=== PATIENT | male | born 1965 | race Caucasian/White ===

== ENCOUNTER 2017-09-14 15:46 | Inpatient (IN) | payer OTHER ==
[~2017-09-14] VITALS: Ht 175.3 cm; Wt 87.8 kg
[2017-09-14] VITALS (7 sets, daily range): BP systolic 115–144; BP diastolic 76–79; PULSE 88–109; RESP 15–20; TEMP 97.5–98.7; O2SAT 94–96
[2017-09-14] MEDS ORDERED: CHLORHEXIDINE GLUCONATE 2 % 1 PACK (2 CLOTHS) TOP PRN (16:45)
[2017-09-14] MEDS ORDERED: MAGNESIUM HYDROXIDE SUSP 30 ML CUP PO PRN (16:45)
[2017-09-14] MEDS ORDERED: LACTULOSE SYRUP 20 GM/30 ML CUP PO PRN (16:45)
[2017-09-14] MEDS: PCA - TOTAL MG DILAUDID DELIVERED PER SHIFT OTHER SCH ×2 (16:45→20:43)
[2017-09-14] MEDS ORDERED: ONDANSETRON HCL 4 MG/2 ML VIAL IV PUSH PRN (16:45)
[2017-09-14] MEDS ORDERED: MISCELLANEOUS NURSING INFORMATION XX SCH (16:45)
[2017-09-14] MEDS ORDERED: BISACODYL 10 MG SUPP RECTAL PRN (16:45)
[2017-09-14] MEDS ORDERED: SENNOSIDES 8.6 MG TAB PO PRN (16:45)
[2017-09-14] MEDS: RESP: ALBUTEROL 2.5 MG/IPRATROPIUM 0.5 MG NEB (SCH) INH ×2 (16:45→20:57)
[2017-09-14] MEDS ORDERED: diphenhydrAMINE HCL 25 MG CAP PO PRN (16:45)
[2017-09-14] MEDS ORDERED: NALOXONE HCL 0.4 MG/ML AMP IV PUSH PRN (16:45)
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
[2017-09-14] MEDS: ACETAMINOPHEN 1000 MG/100 ML 100 ML IV SCH ×2 (17:46→22:17)
[2017-09-14] MEDS: METHOCARBAMOL 500 MG TAB PO SCH ×2 (17:46→20:43)
[2017-09-14] MEDS: GABAPENTIN 100 MG CAP PO SCH (17:46)
[2017-09-14] MEDS: SODIUM CHLOR 0.9% 1000 ML INJ 1,000 ML IV SCH (17:47)
[2017-09-14] MEDS: HYDROmorphone HCL PCA 6 MG/30 ML IV SCH (18:03)
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
[2017-09-14] MEDS: DOCUSATE SODIUM 50 MG/SENNA 8.6 MG TAB PO SCH (20:43)
[2017-09-14] MEDS: CHLORHEXIDINE GLUCONATE 2 % 1 PACK (2 CLOTHS) TOP SCH (23:28)
[2017-09-15] VITALS (17 sets, daily range): BP systolic 124–163; BP diastolic 68–91; PULSE 71–115; RESP 8–25; TEMP 97.6–98.3; O2SAT 91–100
[2017-09-15] MEDS: RESP: ALBUTEROL 2.5 MG/IPRATROPIUM 0.5 MG NEB (SCH) INH ×5 (04:05→20:48)
[2017-09-15] MEDS: ACETAMINOPHEN 1000 MG/100 ML 100 ML IV SCH ×2 (04:16→12:09)
[2017-09-15] MEDS: METHOCARBAMOL 500 MG TAB PO SCH ×3 (04:16→22:00)
[2017-09-15] MEDS: SODIUM CHLOR 0.9% 1000 ML INJ 1,000 ML IV SCH (04:17)
[2017-09-15] MEDS: HYDROmorphone HCL PCA 6 MG/30 ML IV SCH (04:25)
[2017-09-15 05:12] LABS: AUTOMATED NEUTROPHIL # 13.8 TH/MM3 (1.8-7.7); BASOPHIL % 0.1 % (0.0-2.0); HEMATOCRIT 34.5 % (39.0-51.0); HEMOGLOBIN 11.6 GM/DL (13.0-17.0); LYMPHOCYTE # 0.8 TH/MM3 (1.0-4.8); MEAN CELL VOLUME 95.3 FL (80.0-100.0); MEAN CORPUSCULAR HEMOGLOBIN 32.1 PG (27.0-34.0); MEAN CORPUSCULAR HGB CONC 33.7 % (32.0-36.0); MEAN PLATELET VOLUME 6.9 FL (7.0-11.0); MONO % 9.6 % (0.0-8.0); MONOCYTE # 1.5 TH/MM3 (0-0.9); NEUT % 85.3 % (16.0-70.0); PLATELET COUNT 270 TH/MM3 (150-450); RED BLOOD COUNT 3.62 MIL/MM3 (4.50-5.90); RED CELL DISTRIBUTION WIDTH 14.1 % (11.6-17.2); WHITE BLOOD COUNT 16.2 TH/MM3 (4.0-11.0)
[2017-09-15 05:26] LABS: BICARBONATE 23.7 MEQ/L (21.0-32.0); CALCIUM 7.8 MG/DL (8.5-10.1); CREATININE 1.11 MG/DL (0.60-1.30)
[2017-09-15] MEDS: PCA - TOTAL MG DILAUDID DELIVERED PER SHIFT OTHER SCH ×3 (05:45→22:00)
--- NOTE | 2017-09-15 06:13 | RADRPT ---
EXAM DATE/TIME: 09/15/2017 04:44 [facility] COMPARISON: CHEST SINGLE AP, September 14, 2017, 16:23. INDICATIONS : Short of breath. MEDICAL HISTORY : None. SURGICAL HISTORY : None. ENCOUNTER: Subsequent ACUITY: 2 days PAIN SCORE: Non-responsive. LOCATION: Bilateral chest FINDINGS: A single AP portable semierect view of the chest was obtained and again demonstrates the right-sided chest tube in place with no pneumothorax. Subcutaneous emphysema remains over the right lateral chest wall. There are multiple right rib fractures. Mild hazy opacities now noted in the right lung with i nterval improvement. There is patchy opacity remaining at the left medial lung base. The heart size i s within normal limits. CONCLUSION: 1. Right-sided chest tube in place with no visualized pneumothorax. 2. Interval improvement in bilateral pulmonary opacities. Rex Fuentes MD on September 15, 2017 at 6:10 Board Certified Radiologist. This report was verified electronically.
[2017-09-15] MEDS: GABAPENTIN 100 MG CAP PO SCH ×3 (07:42→18:00)
[2017-09-15] MEDS: DOCUSATE SODIUM 50 MG/SENNA 8.6 MG TAB PO SCH ×2 (07:43→21:00)
[2017-09-15] MEDS: FAMOTIDINE 20 MG TAB PO SCH ×2 (08:58→21:00)
[2017-09-15] MEDS: LIDOCAINE HCL 5% PATCH T-DERMAL SCH (08:58)
[2017-09-15] MEDS ORDERED: PROPOFOL 200 MG/20 ML AMP IV ONE (12:00)
[2017-09-15] MEDS ORDERED: NORMOSOL R INJ 2,000 ML IV ONE (12:00)
[2017-09-15] MEDS ORDERED: ROCURONIUM INJ 50 MG/5 ML SYRINGE IV PUSH ONE (12:00)
[2017-09-15] MEDS ORDERED: ceFAZolin INJ 1,000 MG VIAL IV ONE ×2 (12:00→16:14)
[2017-09-15] MEDS ORDERED: SODIUM CHLORID 0.9% 500 ML INJ 500 ML IV ONE (12:00)
[2017-09-15] MEDS ORDERED: LACTATED RINGER'S 1000 ML INJ 2,000 ML IV ONE (12:00)
[2017-09-15] MEDS ORDERED: SODIUM CHLORIDE 0.9% 20 ML VIAL IV ONE (12:00)
[2017-09-15] MEDS ORDERED: VECURONIUM BROMIDE 20 MG VIAL IV ONE (12:00)
[2017-09-15] MEDS ORDERED: NOREPINEPHRINE-DEXTROSE DRIP 250 ML IV ONE (12:14)
[2017-09-15] MEDS ORDERED: MIDAZOLAM HCL 5 MG/ML VIAL (1 ML) ONE (12:25)
[2017-09-15] MEDS ORDERED: ROCURONIUM INJ 50 MG/5 ML VIAL ONE (12:25)
--- NOTE | 2017-09-15 12:38 | RADRPT ---
EXAM DATE/TIME: 09/15/2017 11:54 [facility] COMPARISON: No previous studies available for comparison. INDICATIONS : Right shoulder pain. MEDICAL HISTORY : None. SURGICAL HISTORY : None. ENCOUNTER: Subsequent ACUITY: 2 days PAIN SCORE: 10/10 LOCATION: Right shoulder FINDINGS: They are numerous segmental rib fractures on the right characteristic of the radiographic flail chest . Extensive subcutaneous air in the soft tissues with likely right lung contusion and consolidation. Right chest tube present. No definite fracture of the right shoulder. CONCLUSION: 1. No definite shoulder fracture. Numerous segmental right rib fractures. Right chest tube present wi th underlying lung contusion and consolidation. Jermain Howell MD on September 15, 2017 at 12:33 Board Certified Radiologist. This report was verified electronically.
[2017-09-15] MEDS ORDERED: EPINEPHrine HCL (1:10,000) 1 MG/10 ML SYRINGE ONE (12:41)
[2017-09-15] MEDS ORDERED: SODIUM BICARBONATE 8.4% INJ 50 MEQ/50 ML SYR ONE (13:02)
[2017-09-15] MEDS ORDERED: CALCIUM CHLORIDE 10% SOLN 1 GRAM/10 ML SYR ONE (13:02)
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
--- NOTE | 2017-09-15 13:37 | PD.PROCEDR ---
Procedure Note Procedure DX: Hypovolemic Shock, Hypoxemic Respiratory Failure (J96.01) OP: 1. Orotracheal intubation (65436) 2. Insertion right subclavian central venous line (35543) Procedure: Bag mask ventilation. Levophed gtt to maintain blood pressure > 80. Versed 2.5 mg and rocuronium 100 mg iv. Intubated orally with 8.0 tube. Position confirmed with CO2 detection, breath sounds, improved sats to > 90%. Right chest prepped and draped. Right subclavian vein cannulated with thin walled needle and wire advanced. Catheter passed over wire to 17 cm. Lumens aspirated and flushed. Dressing applied. Patient rushed to OR in shock. Patient diaphoretic and contact dressing will not adhere, therefore line was sutured in. Karsten Cifuentes MD Sep 15, 2017 13:37
[2017-09-15 13:39] LABS: INTERNATIONAL NORMALIZED RATIO 1.5 RATIO; PROTHROMBIN TIME - PATIENT 15.4 SEC (9.8-11.6)
[2017-09-15 13:40] LABS: HEMOGLOBIN 6.7 GM/DL (13.0-17.0)
[2017-09-15 13:41] LABS: HEMATOCRIT 20.4 % (39.0-51.0)
[2017-09-15 13:55] LABS: BICARBONATE 17.6 MEQ/L (21.0-32.0); CALCIUM 7.2 MG/DL (8.5-10.1); CREATININE 1.21 MG/DL (0.60-1.30)
[2017-09-15 14:07] LABS: CALCIUM-PROTEIN CORRECTED 10.2 MG/DL (8.5-10.1); TOTAL PROTEIN 2.5 GM/DL (6.4-8.2)
[2017-09-15] MEDS ORDERED: SODIUM CHLORIDE 0.9% IV ONE (14:15)
[2017-09-15] MEDS ORDERED: TRANEXAMIC ACID IV ONE (14:15)
[2017-09-15] MEDS ORDERED: PROPOFOL 500 MG/50 ML INJ 50 ML ONE (15:52)
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
[2017-09-15] MEDS ORDERED: MIDAZOLAM HCL 2 MG/2 ML VIAL ONE (16:16)
--- NOTE | 2017-09-15 16:42 | RADRPT ---
EXAM DATE/TIME: 09/15/2017 15:01 [facility] COMPARISON: No previous studies available for comparison. INDICATIONS : Instrument count during right thoracotomy for removal of hematoma from right lower lobe. OR. MEDICAL HISTORY : None. SURGICAL HISTORY : None. ENCOUNTER: Initial ACUITY: 1 day PAIN SCORE: Non-responsive. LOCATION: Right lower chest FINDINGS: A left lateral view of the abdomen and lower chest is performed intraoperative post thoracotomy for i nstrument count. Multiple metallic hemoclips at the transverse incision and multiple tubes are in pl aaron. No other metallic foreign body seen. CONCLUSION: No metallic densities other than skin clips seen. Sami Barrera MD on September 15, 2017 at 16:39 Board Certified Radiologist. This report was verified electronically.
[2017-09-15] MEDS: fentaNYL DRIP 250 ML IV PRN (17:21)
[2017-09-15 17:24] LABS: AUTOMATED NEUTROPHIL # 5.6 TH/MM3 (1.8-7.7); BASOPHIL % 0.1 % (0.0-2.0); EOSINOPHIL % 0.1 % (0.0-4.0); HEMATOCRIT 25.7 % (39.0-51.0); HEMOGLOBIN 9.2 GM/DL (13.0-17.0); LYMPH % 7.4 % (9.0-44.0); LYMPHOCYTE # 0.5 TH/MM3 (1.0-4.8); MEAN CELL VOLUME 85.1 FL (80.0-100.0); MEAN CORPUSCULAR HEMOGLOBIN 30.5 PG (27.0-34.0); MEAN CORPUSCULAR HGB CONC 35.8 % (32.0-36.0); MEAN PLATELET VOLUME 6.6 FL (7.0-11.0); MONO % 6.2 % (0.0-8.0); MONOCYTE # 0.4 TH/MM3 (0-0.9); NEUT % 86.2 % (16.0-70.0); PLATELET COUNT 86 TH/MM3 (150-450); RED BLOOD COUNT 3.02 MIL/MM3 (4.50-5.90); RED CELL DISTRIBUTION WIDTH 15.1 % (11.6-17.2); WHITE BLOOD COUNT 6.5 TH/MM3 (4.0-11.0)
[2017-09-15 17:29] LABS: INTERNATIONAL NORMALIZED RATIO 1.1 RATIO; PROTHROMBIN TIME - PATIENT 10.7 SEC (9.8-11.6)
[2017-09-15] MEDS: INSULIN ASPART SUPPLEMENTAL SCALE SQ SCH ×2 (17:45→23:45)
[2017-09-15] MEDS ORDERED: GLUCAGON 1 MG/ML VIAL OTHER PRN (17:45)
[2017-09-15] MEDS ORDERED: DEXTROSE 50% IN WATER 50 ML VIAL(D50) IV PUSH PRN (17:45)
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
[2017-09-15 18:00] LABS: BICARBONATE 30.1 MEQ/L (21.0-32.0); CALCIUM 7.9 MG/DL (8.5-10.1); CREATININE 1.06 MG/DL (0.60-1.30)
[2017-09-15 18:28] LABS: BANDS 23 % (0-6); LYMPHOCYTES 6 % (9-44); MONOCYTES 1 % (0-8); POLYS (SEG NEUTROPHILS) 70 % (16-70)
[2017-09-15] MEDS: PROPOFOL 1000 MG/100 ML INJ 100 ML IV PRN ×2 (18:37→22:11)
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
[2017-09-15] MEDS ORDERED: ENOXAPARIN SODIUM 30 MG/0.3 ML SYRINGE SQ SCH (21:00)
[2017-09-16] VITALS (20 sets, daily range): BP systolic 100–126; BP diastolic 52–61; PULSE 66–94; RESP 12–20; TEMP 98–99.1; O2SAT 93–100
[2017-09-16] MEDS: CHLORHEXIDINE GLUCONATE 2 % 1 PACK (2 CLOTHS) TOP SCH (04:00)
[2017-09-16] MEDS: PROPOFOL 1000 MG/100 ML INJ 100 ML IV PRN ×4 (04:17→21:26)
[2017-09-16] MEDS: fentaNYL DRIP 250 ML IV PRN ×2 (04:17→16:19)
[2017-09-16] MEDS: RESP: ALBUTEROL 2.5 MG/IPRATROPIUM 0.5 MG NEB (SCH) INH ×4 (04:30→19:59)
[2017-09-16] MEDS: INSULIN ASPART SUPPLEMENTAL SCALE SQ SCH ×4 (05:45→23:45)
[2017-09-16 05:57] LABS: AUTOMATED NEUTROPHIL # 4.5 TH/MM3 (1.8-7.7); BASOPHIL % 0.3 % (0.0-2.0); EOSINOPHIL % 0.6 % (0.0-4.0); HEMATOCRIT 24.4 % (39.0-51.0); HEMOGLOBIN 8.8 GM/DL (13.0-17.0); LYMPH % 15.2 % (9.0-44.0); LYMPHOCYTE # 0.9 TH/MM3 (1.0-4.8); MEAN CELL VOLUME 82.5 FL (80.0-100.0); MEAN CORPUSCULAR HEMOGLOBIN 29.6 PG (27.0-34.0); MEAN CORPUSCULAR HGB CONC 35.9 % (32.0-36.0); MEAN PLATELET VOLUME 7.4 FL (7.0-11.0); MONO % 7.4 % (0.0-8.0); MONOCYTE # 0.4 TH/MM3 (0-0.9); NEUT % 76.5 % (16.0-70.0); PLATELET COUNT 78 TH/MM3 (150-450); RED BLOOD COUNT 2.96 MIL/MM3 (4.50-5.90); RED CELL DISTRIBUTION WIDTH 15.9 % (11.6-17.2); WHITE BLOOD COUNT 5.9 TH/MM3 (4.0-11.0)
[2017-09-16] MEDS: METHOCARBAMOL 500 MG TAB PO SCH ×3 (06:00→21:26)
[2017-09-16] MEDS: PCA - TOTAL MG DILAUDID DELIVERED PER SHIFT OTHER SCH ×3 (06:00→21:26)
[2017-09-16 06:19] LABS: ALBUMIN 2.4 GM/DL (3.4-5.0); AST (GOT) 45 U/L (15-37); BLOOD UREA NITROGEN 9 MG/DL (7-18); CALCIUM 7.5 MG/DL (8.5-10.1); CHLORIDE 108 MEQ/L (98-107); CREATININE 0.77 MG/DL (0.60-1.30); GLOMERULAR FILTRATION RATE 106 ML/MIN (>89); GLUCOSE,RANDOM 96 MG/DL (74-106); SODIUM (NA) 145 MEQ/L (136-145)
[2017-09-16 06:29] LABS: ALKALINE PHOSPHATASE 47 U/L (45-117); ALT (GPT) 23 U/L (12-78); TOTAL BILIRUBIN ADULT 1.1 MG/DL (0.2-1.0); TOTAL PROTEIN 5.1 GM/DL (6.4-8.2)
--- NOTE | 2017-09-16 07:09 | RADRPT ---
EXAM DATE/TIME: 09/16/2017 05:19 [facility] COMPARISON: CHEST SINGLE AP, September 15, 2017, 16:50. INDICATIONS : Shortness of breath. MEDICAL HISTORY : None. SURGICAL HISTORY : None. ENCOUNTER: Subsequent ACUITY: 4 - 6 days PAIN SCORE: Non-responsive. LOCATION: Bilateral chest FINDINGS: A single AP semierect view of the chest was obtained and again demonstrates the 2 right sided chest t ubes in place with small linear lucency at the right medial lung base. Multiple right-sided rib fract ures again noted with subcutaneous emphysema over the right lateral chest wall. Endotracheal tube rem ains in place with the tip approximately 2 cm above the becca. There are multiple overlying electroc ardiogram leads. There is patchy opacity now noted at the left lung base with obscuration of left hem idiaphragm and blunting of the costophrenic angle. The heart size remains within normal limits. CONCLUSION: 1. Small apparent medial right basilar pneumothorax. 2. Opacity at the left lung base with blunting of the costophrenic angle consistent with infiltrate a nd/or effusion. Rex Fuentes MD on September 16, 2017 at 7:06 Board Certified Radiologist. This report was verified electronically.
[2017-09-16 08:04] LABS: BANDS 21 % (0-6); CORRECTED NUCLEATED RBC 1 /100 WBC (0-0); LYMPHOCYTES 9 % (9-44); MONOCYTES 3 % (0-8); NEUTROPHIL # MANUAL DIFF 5.1 TH/MM3 (1.8-7.7); NUCLEATED RED BLOOD CELL 1 (0-0); POLYS (SEG NEUTROPHILS) 66 % (16-70)
[2017-09-16 08:06] LABS: OVALOCYTES 1+ (NORMAL)
[2017-09-16 08:07] LABS: DOHLE BODIES PRESENT (NONE SEEN)
[2017-09-16] MEDS ORDERED: NOREPINEPHRINE 4 MG/D5W 250 ML IV PRN (08:30)
[2017-09-16] MEDS: SODIUM CHLOR 0.9% 1000 ML INJ 1,000 ML IV SCH ×3 (08:52→16:20)
[2017-09-16] MEDS: FAMOTIDINE 20 MG TAB PO SCH ×2 (08:52→21:26)
[2017-09-16] MEDS: DOCUSATE SODIUM 50 MG/SENNA 8.6 MG TAB PO SCH ×2 (08:52→21:26)
[2017-09-16] MEDS: LIDOCAINE HCL 5% PATCH T-DERMAL SCH (08:52)
[2017-09-16] MEDS: REMOVE OLD LIDOCAINE PATCH T-DERMAL SCH ×2 (08:52→08:53)
[2017-09-16] MEDS: GABAPENTIN 100 MG CAP PO SCH ×3 (08:52→17:47)
[2017-09-16] MEDS ORDERED: ROCURONIUM INJ 50 MG/5 ML VIAL IV ONE (12:15)
[2017-09-16] MEDS: ENOXAPARIN SODIUM 40 MG/0.4 ML SYRINGE SQ SCH (12:54)
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
--- NOTE | 2017-09-16 13:33 | PD.PROCEDR ---
Procedure Note Procedure Endotracheal Intubation Diagnosis: acute hypoxic respiratory failure Indications: cuff leak of the old double lumen endotracheal tube Consent: not obtained Anesthesia: on propofol and fentanyl infusion, rocuronium 100 mg Description of the Procedure: The patient was positioned in the sniffing position. Pre-oxygenation was performed using the old double lumen endotracheal tube. Anesthesia was induced via rapid sequence. A Colvin 2 blade was used for laryngoscopy and a Grade 1 view was obtained. A n 8.5mm cuffed endotracheal tube was inserted atraumatically through the vocal cords. Confirmation of correct endotracheal tube placement was made by equal and bilateral breath sounds and colorimetric CO2 detection. The endotracheal tube was secured at 24 cm at the teeth. There were no immediate complications noted. The patient remained hemodynamically stable throughout the procedure. A chest x-ray has been ordered. I personally performed the procedure. Jef Massey MD Sep 16, 2017 13:33
--- NOTE | 2017-09-16 13:59 | RADRPT ---
EXAM DATE/TIME: 09/16/2017 13:10 [facility] COMPARISON: CHEST SINGLE AP, September 16, 2017, 5:19. INDICATIONS : Post re-intubation. MEDICAL HISTORY : None. SURGICAL HISTORY : None. ENCOUNTER: Subsequent ACUITY: 1 day PAIN SCORE: Non-responsive. LOCATION: Bilateral chest FINDINGS: Endotracheal tube tip is within the right main bronchus, approximately 1.2 cm below the becca. Ther e is increase airspace opacity in the right upper lung. 3 right chest drainage tubes are unchanged i n position. Persistent consolidation left lower lung. CONCLUSION: Intubation of the right main bronchus. ET tube needs to be withdrawn at least 3-1/2 cm. Sami Barrera MD on September 16, 2017 at 13:56 Board Certified Radiologist. This report was verified electronically.
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
[2017-09-16] MEDS ORDERED: POTASSIUM PHOSPHATE INJ 30 MMOL in SODIUM CHLOR 0.9% 250 ML INJ 250 ML IV PRN (18:00)
[2017-09-16] MEDS ORDERED: MAGNESIUM OXIDE 400 MG TAB PO PRN (18:00)
[2017-09-16] MEDS ORDERED: POTASSIUM PHOSPHATE MONOBASIC 500 MG TAB PO PRN (18:00)
[2017-09-16] MEDS ORDERED: POTASSIUM CHLOR 20 MEQ PREMIX 100 ML IV PRN ×2 (18:00)
[2017-09-16] MEDS ORDERED: MAGNESIUM SULFATE INJ 4 GM in SODIUM CHLORIDE 0.9% INJ 92 ML IV PRN (18:00)
[2017-09-16] MEDS ORDERED: MAGNESIUM SULFATE INJ 2 GM in SODIUM CHLORIDE 0.9% INJ 96 ML IV PRN (18:00)
[2017-09-16] MEDS ORDERED: SODIUM PHOSPHATE INJ 30 MMOL in SODIUM CHLOR 0.9% 250 ML INJ 240 ML IV PRN (18:00)
[2017-09-16] MEDS ORDERED: POTASSIUM PHOSPHATE MONOBASIC 500 MG TAB PO/TUBE PRN (18:00)
[2017-09-17] VITALS (15 sets, daily range): BP systolic 114–154; BP diastolic 61–83; PULSE 72–136; RESP 11–12; TEMP 98–98.6; O2SAT 87–99
[2017-09-17] MEDS: PROPOFOL 1000 MG/100 ML INJ 100 ML IV PRN ×5 (01:50→22:28)
[2017-09-17] MEDS: CHLORHEXIDINE GLUCONATE 2 % 1 PACK (2 CLOTHS) TOP SCH (04:00)
[2017-09-17] MEDS: RESP: ALBUTEROL 2.5 MG/IPRATROPIUM 0.5 MG NEB (SCH) INH ×4 (04:08→19:53)
[2017-09-17] MEDS: METHOCARBAMOL 500 MG TAB PO SCH ×3 (04:24→21:10)
[2017-09-17] MEDS: PCA - TOTAL MG DILAUDID DELIVERED PER SHIFT OTHER SCH ×3 (04:25→21:10)
[2017-09-17] MEDS: SODIUM CHLOR 0.9% 1000 ML INJ 1,000 ML IV SCH ×2 (04:25→09:07)
[2017-09-17 04:56] LABS: AUTOMATED NEUTROPHIL # 5.6 TH/MM3 (1.8-7.7); BASOPHIL % 0.6 % (0.0-2.0); EOSINOPHIL # 0.2 TH/MM3 (0-0.4); EOSINOPHIL % 2.8 % (0.0-4.0); HEMOGLOBIN 8.7 GM/DL (13.0-17.0); LYMPH % 15.3 % (9.0-44.0); LYMPHOCYTE # 1.2 TH/MM3 (1.0-4.8); MEAN CORPUSCULAR HEMOGLOBIN 29.4 PG (27.0-34.0); MEAN CORPUSCULAR HGB CONC 34.6 % (32.0-36.0); MEAN PLATELET VOLUME 7.5 FL (7.0-11.0); MONO % 7.6 % (0.0-8.0); MONOCYTE # 0.6 TH/MM3 (0-0.9); NEUT % 73.7 % (16.0-70.0); PLATELET COUNT 98 TH/MM3 (150-450); RED BLOOD COUNT 2.95 MIL/MM3 (4.50-5.90); RED CELL DISTRIBUTION WIDTH 15.9 % (11.6-17.2); WHITE BLOOD COUNT 7.5 TH/MM3 (4.0-11.0)
[2017-09-17 05:21] LABS: BICARBONATE 25.8 MEQ/L (21.0-32.0); CALCIUM 7.1 MG/DL (8.5-10.1); CALCIUM-PROTEIN CORRECTED 8.2 MG/DL (8.5-10.1); CREATININE 0.71 MG/DL (0.60-1.30); TOTAL BILIRUBIN ADULT 1.8 MG/DL (0.2-1.0); TOTAL PROTEIN 5.1 GM/DL (6.4-8.2)
[2017-09-17] MEDS: INSULIN ASPART SUPPLEMENTAL SCALE SQ SCH ×4 (05:45→23:45)
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
--- NOTE | 2017-09-17 06:43 | RADRPT ---
EXAM DATE/TIME: 09/17/2017 05:48 [facility] COMPARISON: CHEST SINGLE AP, September 16, 2017, 13:10. INDICATIONS : Shortness of breath. MEDICAL HISTORY : Rib fractures. SURGICAL HISTORY : None. ENCOUNTER: Subsequent ACUITY: 3 days PAIN SCORE: Non-responsive. LOCATION: Bilateral chest FINDINGS: A single AP semierect portable view of the chest was obtained and again demonstrates 3 right-sided ch est tubes in place with no visualized pneumothorax. There is decreased opacity in the right lung. Mul tiple right-sided rib fractures are again noted. There is only a small amount of subcutaneous emphyse ma now noted over the right lateral chest wall. There is patchy opacity remaining at the left lung ba se. The heart size remains within normal limits. Endotracheal tube tip remains in place with the tip now located approximately 3 cm above the becca. CONCLUSION: 1. The endotracheal tube tip now lies approximately 3 cm above the becca. 2. The right-sided chest tubes remain in place with no visualized pneumothorax. 3. Decreased hazy opacity in the right lung compared to the prior study. Rex Fuentes MD on September 17, 2017 at 6:40 Board Certified Radiologist. This report was verified electronically.
[2017-09-17] MEDS: FAMOTIDINE 20 MG TAB PO SCH ×2 (08:51→21:10)
[2017-09-17] MEDS: LIDOCAINE HCL 5% PATCH T-DERMAL SCH (08:51)
[2017-09-17] MEDS: GABAPENTIN 100 MG CAP PO SCH ×3 (08:51→17:24)
[2017-09-17] MEDS: DOCUSATE SODIUM 50 MG/SENNA 8.6 MG TAB PO SCH ×2 (08:51→21:10)
[2017-09-17] MEDS: REMOVE OLD LIDOCAINE PATCH T-DERMAL SCH (08:52)
[2017-09-17] MEDS: ENOXAPARIN SODIUM 40 MG/0.4 ML SYRINGE SQ SCH (12:00)
[2017-09-17] MEDS: fentaNYL DRIP 250 ML IV PRN (17:04)
[2017-09-18] VITALS (18 sets, daily range): BP systolic 112–137; BP diastolic 61–80; PULSE 92–128; RESP 11–13; TEMP 99.2–100.3; O2SAT 90–97
[2017-09-18] MEDS: RESP: ALBUTEROL 2.5 MG/IPRATROPIUM 0.5 MG NEB (SCH) INH ×2 (02:32→08:29)
[2017-09-18] MEDS: PROPOFOL 1000 MG/100 ML INJ 100 ML IV PRN ×6 (03:16→21:28)
[2017-09-18] MEDS: CHLORHEXIDINE GLUCONATE 2 % 1 PACK (2 CLOTHS) TOP SCH (04:00)
[2017-09-18 04:01] LABS: AUTOMATED NEUTROPHIL # 8.2 TH/MM3 (1.8-7.7); BASOPHIL % 0.4 % (0.0-2.0); EOSINOPHIL # 0.4 TH/MM3 (0-0.4); EOSINOPHIL % 4.3 % (0.0-4.0); HEMATOCRIT 27.7 % (39.0-51.0); HEMOGLOBIN 9.5 GM/DL (13.0-17.0); LYMPH % 6.5 % (9.0-44.0); LYMPHOCYTE # 0.7 TH/MM3 (1.0-4.8); MEAN CORPUSCULAR HEMOGLOBIN 29.5 PG (27.0-34.0); MEAN CORPUSCULAR HGB CONC 34.3 % (32.0-36.0); MEAN PLATELET VOLUME 7.1 FL (7.0-11.0); MONO % 7.9 % (0.0-8.0); MONOCYTE # 0.8 TH/MM3 (0-0.9); NEUT % 80.9 % (16.0-70.0); PLATELET COUNT 140 TH/MM3 (150-450); RED BLOOD COUNT 3.22 MIL/MM3 (4.50-5.90); RED CELL DISTRIBUTION WIDTH 16.2 % (11.6-17.2); WHITE BLOOD COUNT 10.2 TH/MM3 (4.0-11.0)
[2017-09-18] MEDS: SODIUM CHLOR 0.9% 1000 ML INJ 1,000 ML IV SCH (04:25)
[2017-09-18 04:44] LABS: ALBUMIN 1.9 GM/DL (3.4-5.0); BICARBONATE 26.1 MEQ/L (21.0-32.0); CALCIUM 7.2 MG/DL (8.5-10.1); CREATININE 0.75 MG/DL (0.60-1.30); TOTAL PROTEIN 5.6 GM/DL (6.4-8.2)
[2017-09-18] MEDS: INSULIN ASPART SUPPLEMENTAL SCALE SQ SCH ×4 (05:37→23:45)
[2017-09-18] MEDS: fentaNYL DRIP 250 ML IV PRN ×3 (05:37→17:37)
[2017-09-18] MEDS: METHOCARBAMOL 500 MG TAB PO SCH ×3 (05:37→21:28)
[2017-09-18] MEDS: PCA - TOTAL MG DILAUDID DELIVERED PER SHIFT OTHER SCH ×3 (05:37→21:28)
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
[2017-09-18] MEDS ORDERED: FUROSEMIDE 40 MG/4 ML VIAL IV PUSH ONE (06:45)
[2017-09-18] MEDS: FAMOTIDINE 20 MG TAB PO SCH ×2 (08:41→21:28)
[2017-09-18] MEDS: LIDOCAINE HCL 5% PATCH T-DERMAL SCH (08:41)
[2017-09-18] MEDS: DOCUSATE SODIUM 50 MG/SENNA 8.6 MG TAB PO SCH ×2 (08:41→21:00)
[2017-09-18] MEDS: REMOVE OLD LIDOCAINE PATCH T-DERMAL SCH (08:41)
[2017-09-18] MEDS: GABAPENTIN 100 MG CAP PO SCH ×3 (08:41→18:00)
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
[2017-09-18] MEDS: POTASSIUM CHLOR 40 MEQ PREMIX 100 ML IV PRN ×2 (09:39→11:56)
[2017-09-18] MEDS: ENOXAPARIN SODIUM 40 MG/0.4 ML SYRINGE SQ SCH (12:09)
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
[2017-09-19] VITALS (18 sets, daily range): BP systolic 119–126; BP diastolic 60–71; PULSE 86–128; RESP 13; TEMP 98.9–99.9; O2SAT 92–98
[2017-09-19] MEDS: fentaNYL DRIP 250 ML IV PRN ×3 (02:09→19:30)
[2017-09-19] MEDS: PROPOFOL 1000 MG/100 ML INJ 100 ML IV PRN ×4 (02:09→20:37)
[2017-09-19] MEDS: CHLORHEXIDINE GLUCONATE 2 % 1 PACK (2 CLOTHS) TOP SCH (04:00)
[2017-09-19] MEDS: INSULIN ASPART SUPPLEMENTAL SCALE SQ SCH ×4 (05:45→23:45)
[2017-09-19] MEDS: PCA - TOTAL MG DILAUDID DELIVERED PER SHIFT OTHER SCH ×3 (06:00→22:00)
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
[2017-09-19 07:49] LABS: AUTOMATED NEUTROPHIL # 5.3 TH/MM3 (1.8-7.7); BASOPHIL % 0.2 % (0.0-2.0); EOSINOPHIL # 0.5 TH/MM3 (0-0.4); EOSINOPHIL % 6.7 % (0.0-4.0); HEMATOCRIT 26.1 % (39.0-51.0); HEMOGLOBIN 8.9 GM/DL (13.0-17.0); LYMPH % 9.1 % (9.0-44.0); LYMPHOCYTE # 0.7 TH/MM3 (1.0-4.8); MEAN CELL VOLUME 87.7 FL (80.0-100.0); MEAN CORPUSCULAR HEMOGLOBIN 29.8 PG (27.0-34.0); MONO % 16.9 % (0.0-8.0); MONOCYTE # 1.3 TH/MM3 (0-0.9); NEUT % 67.1 % (16.0-70.0); PLATELET COUNT 159 TH/MM3 (150-450); RED BLOOD COUNT 2.98 MIL/MM3 (4.50-5.90); RED CELL DISTRIBUTION WIDTH 15.8 % (11.6-17.2); WHITE BLOOD COUNT 7.9 TH/MM3 (4.0-11.0)
[2017-09-19 08:11] LABS: BICARBONATE 29.4 MEQ/L (21.0-32.0); CREATININE 0.83 MG/DL (0.60-1.30)
[2017-09-19] MEDS: DOCUSATE SODIUM 50 MG/SENNA 8.6 MG TAB PO SCH ×2 (08:13→20:36)
[2017-09-19] MEDS: LIDOCAINE HCL 5% PATCH T-DERMAL SCH (08:14)
[2017-09-19] MEDS: METHOCARBAMOL 500 MG TAB PO SCH ×3 (08:14→21:51)
[2017-09-19] MEDS: GABAPENTIN 100 MG CAP PO SCH ×3 (08:14→17:03)
[2017-09-19] MEDS: REMOVE OLD LIDOCAINE PATCH T-DERMAL SCH (08:14)
[2017-09-19] MEDS: FAMOTIDINE 20 MG TAB PO SCH ×2 (08:14→20:36)
[2017-09-19 09:34] LABS: BANDS 22 % (0-6); LYMPHOCYTES 11 % (9-44); MONOCYTES 13 % (0-8); MYELOCYTES 1 % (0-0); POLYS (SEG NEUTROPHILS) 53 % (16-70)
[2017-09-19] MEDS ORDERED: FUROSEMIDE 40 MG/4 ML VIAL IV PUSH ONE (10:15)
[2017-09-19] MEDS: ENOXAPARIN SODIUM 40 MG/0.4 ML SYRINGE SQ SCH (11:05)
[2017-09-19] MEDS ORDERED: POTASSIUM BICARBONATE 25 MEQ EFFERVESCENT TAB PO ONE (12:00)
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
[2017-09-19 23:43] LABS: ALBUMIN 1.7 GM/DL (3.4-5.0); AST (GOT) 37 U/L (15-37); BICARBONATE 30.6 MEQ/L (21.0-32.0); BLOOD UREA NITROGEN 12 MG/DL (7-18); CALCIUM 7.9 MG/DL (8.5-10.1); CHLORIDE 106 MEQ/L (98-107); CREATININE 0.91 MG/DL (0.60-1.30); GLOMERULAR FILTRATION RATE 87 ML/MIN (>89); GLUCOSE,RANDOM 143 MG/DL (74-106); MAGNESIUM 1.8 MG/DL (1.5-2.5); SODIUM (NA) 142 MEQ/L (136-145)
[2017-09-19 23:44] LABS: ALT (GPT) 24 U/L (12-78); PHOSPHORUS 1.6 MG/DL (2.5-4.9)
[2017-09-19 23:48] LABS: ALKALINE PHOSPHATASE 159 U/L (45-117); TOTAL BILIRUBIN ADULT 1.8 MG/DL (0.2-1.0); TOTAL PROTEIN 5.8 GM/DL (6.4-8.2); TROPONIN I LESS THAN 0.02 NG/ML (0.02-0.05)
[2017-09-20] VITALS (21 sets, daily range): BP systolic 123–166; BP diastolic 58–79; PULSE 62–111; RESP 13–21; TEMP 98.4–99.9; O2SAT 91–97
[2017-09-20] MEDS: CHLORHEXIDINE GLUCONATE 2 % 1 PACK (2 CLOTHS) TOP SCH (00:13)
[2017-09-20] MEDS: PROPOFOL 1000 MG/100 ML INJ 100 ML IV PRN ×2 (00:36→04:00)
[2017-09-20] MEDS: fentaNYL DRIP 250 ML IV PRN (04:56)
[2017-09-20] MEDS: PCA - TOTAL MG DILAUDID DELIVERED PER SHIFT OTHER SCH (04:58)
[2017-09-20] MEDS: METHOCARBAMOL 500 MG TAB PO SCH ×3 (05:03→19:36)
[2017-09-20 05:08] LABS: AUTOMATED NEUTROPHIL # 6.8 TH/MM3 (1.8-7.7); BASOPHIL % 0.2 % (0.0-2.0); EOSINOPHIL # 0.4 TH/MM3 (0-0.4); EOSINOPHIL % 4.2 % (0.0-4.0); HEMOGLOBIN 8.6 GM/DL (13.0-17.0); LYMPH % 8.2 % (9.0-44.0); LYMPHOCYTE # 0.8 TH/MM3 (1.0-4.8); MEAN CELL VOLUME 86.8 FL (80.0-100.0); MEAN CORPUSCULAR HEMOGLOBIN 29.8 PG (27.0-34.0); MEAN CORPUSCULAR HGB CONC 34.3 % (32.0-36.0); MONO % 13.5 % (0.0-8.0); MONOCYTE # 1.2 TH/MM3 (0-0.9); NEUT % 73.9 % (16.0-70.0); PLATELET COUNT 209 TH/MM3 (150-450); RED BLOOD COUNT 2.88 MIL/MM3 (4.50-5.90); RED CELL DISTRIBUTION WIDTH 15.6 % (11.6-17.2); WHITE BLOOD COUNT 9.3 TH/MM3 (4.0-11.0)
[2017-09-20] MEDS: INSULIN ASPART SUPPLEMENTAL SCALE SQ SCH ×4 (05:20→23:16)
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
[2017-09-20 07:55] LABS: BANDS 21 % (0-6); LYMPHOCYTES 9 % (9-44); METAMYELOCYTES 1 % (0-1); MONOCYTES 7 % (0-8); MYELOCYTES 7 % (0-0); NEUTROPHIL # MANUAL DIFF 7.7 TH/MM3 (1.8-7.7); POLYS (SEG NEUTROPHILS) 54 % (16-70)
[2017-09-20] MEDS ORDERED: LABETALOL HCL 100 MG/20 ML VIAL IV PUSH PRN (08:15)
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
[2017-09-20] MEDS ORDERED: FUROSEMIDE 40 MG/4 ML VIAL IV PUSH ONE (09:00)
[2017-09-20] MEDS: FAMOTIDINE 20 MG TAB PO SCH ×2 (09:00→19:35)
[2017-09-20] MEDS: DOCUSATE SODIUM 50 MG/SENNA 8.6 MG TAB PO SCH ×2 (09:00→19:35)
[2017-09-20] MEDS: REMOVE OLD LIDOCAINE PATCH T-DERMAL SCH (09:00)
[2017-09-20 09:14] LABS: BICARBONATE 31.4 MEQ/L (21.0-32.0); CALCIUM 8.2 MG/DL (8.5-10.1); CREATININE 0.85 MG/DL (0.60-1.30)
[2017-09-20] MEDS: LIDOCAINE HCL 5% PATCH T-DERMAL SCH (09:15)
[2017-09-20] MEDS: GABAPENTIN 100 MG CAP PO SCH ×3 (09:15→18:00)
[2017-09-20] MEDS: LISINOPRIL 5 MG TAB PO SCH (09:15)
[2017-09-20] MEDS: METOPROLOL TARTRATE 50 MG TAB PO SCH ×2 (09:15→19:35)
--- NOTE | 2017-09-20 09:19 | EKG ---
Date Performed: 09/19/2017 Time Performed: 21:00:06 PTAGE: 52 years EKG: Sinus rhythm . Extensive ST-T changes are nonspecific Borderline ECG NO PREVIOUS TRACING DOCTOR: Martínez Najera Interpretating Date/Time 09/20/2017 09:18:54
[2017-09-20] MEDS: POTASSIUM CHLOR 40 MEQ PREMIX 100 ML IV PRN (10:26)
[2017-09-20] MEDS ORDERED: Vancomycin Consult Pharmacy 1 EA OTHER SCH (10:30)
[2017-09-20] MEDS: PIPERACIL-TAZO 4.5 GM PREMIX 100 ML IV SCH ×2 (11:23→19:45)
[2017-09-20] MEDS: MORPHINE SULFATE 4 MG/ML INJ IV PUSH PRN ×2 (11:23→21:07)
[2017-09-20] MEDS: ENOXAPARIN SODIUM 40 MG/0.4 ML SYRINGE SQ SCH (11:23)
[2017-09-20] MEDS: DEXMEDETOMIDINE INJ 1,000 MCG in SODIUM CHLOR 0.9% 250 ML INJ 250 ML IV PRN ×2 (11:43→17:28)
[2017-09-20] MEDS ORDERED: VANCOMYCIN 1,500 MG/NS 500 ML IV ONE ×2 (12:00)
[2017-09-20] MEDS: VANCOMYCIN INJ 1,750 MG in SODIUM CHLORID 0.9% 500 ML INJ 500 ML IV SCH (12:01)
[2017-09-20] MEDS ORDERED: LORazepam 2 MG/ML VIAL ONE (12:09)
[2017-09-20] MEDS: LORazepam 2 MG/ML VIAL IV PUSH PRN ×2 (12:10→17:28)
[2017-09-20] MEDS ORDERED: FLUMAZENIL 0.5 MG/5 ML VIAL IV PUSH PRN (12:15)
[2017-09-20] MEDS ORDERED: LORazepam 2 MG/ML VIAL IV PUSH PRN ×2 (12:15)
[2017-09-20] MEDS ORDERED: LORazepam 1 MG TAB PO PRN (12:15)
[2017-09-20] MEDS ORDERED: LORazepam 2 MG TAB PO PRN (12:15)
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
[2017-09-21] VITALS (19 sets, daily range): BP systolic 118–165; BP diastolic 63–92; PULSE 64–123; RESP 24–33; TEMP 98.1–99.6; O2SAT 92–97
[2017-09-21] MEDS: MORPHINE SULFATE 4 MG/ML INJ IV PUSH PRN ×4 (00:16→13:41)
[2017-09-21] MEDS: DEXMEDETOMIDINE INJ 1,000 MCG in SODIUM CHLOR 0.9% 250 ML INJ 240 ML IV PRN ×2 (00:50→09:12)
[2017-09-21] MEDS: VANCOMYCIN INJ 1,750 MG in SODIUM CHLORID 0.9% 500 ML INJ 500 ML IV SCH ×3 (00:56→23:51)
[2017-09-21] MEDS: PIPERACIL-TAZO 4.5 GM PREMIX 100 ML IV SCH ×3 (03:40→21:57)
[2017-09-21] MEDS: CHLORHEXIDINE GLUCONATE 2 % 1 PACK (2 CLOTHS) TOP SCH (04:00)
[2017-09-21] MEDS: METHOCARBAMOL 500 MG TAB PO SCH ×3 (04:05→22:00)
[2017-09-21] MEDS: LORazepam 2 MG/ML VIAL IV PUSH PRN ×6 (04:19→23:27)
[2017-09-21 04:22] LABS: AUTOMATED NEUTROPHIL # 8.2 TH/MM3 (1.8-7.7); BASOPHIL % 0.4 % (0.0-2.0); EOSINOPHIL # 0.3 TH/MM3 (0-0.4); EOSINOPHIL % 3.2 % (0.0-4.0); HEMATOCRIT 25.8 % (39.0-51.0); HEMOGLOBIN 8.7 GM/DL (13.0-17.0); LYMPH % 9.6 % (9.0-44.0); MEAN CELL VOLUME 87.1 FL (80.0-100.0); MEAN CORPUSCULAR HEMOGLOBIN 29.3 PG (27.0-34.0); MEAN CORPUSCULAR HGB CONC 33.6 % (32.0-36.0); MEAN PLATELET VOLUME 6.7 FL (7.0-11.0); MONO % 11.9 % (0.0-8.0); MONOCYTE # 1.3 TH/MM3 (0-0.9); NEUT % 74.9 % (16.0-70.0); PLATELET COUNT 249 TH/MM3 (150-450); RED BLOOD COUNT 2.96 MIL/MM3 (4.50-5.90); RED CELL DISTRIBUTION WIDTH 15.7 % (11.6-17.2); WHITE BLOOD COUNT 10.9 TH/MM3 (4.0-11.0)
[2017-09-21 04:42] LABS: BICARBONATE 26.7 MEQ/L (21.0-32.0); CREATININE 0.73 MG/DL (0.60-1.30)
[2017-09-21] MEDS: INSULIN ASPART SUPPLEMENTAL SCALE SQ SCH ×4 (05:14→23:45)
[2017-09-21] MEDS: POTASSIUM CHLOR 40 MEQ PREMIX 100 ML IV PRN ×2 (05:21→15:28)
[2017-09-21 06:50] LABS: BANDS 23 % (0-6); LYMPHOCYTES 13 % (9-44); METAMYELOCYTES 3 % (0-1); MONOCYTES 6 % (0-8); MYELOCYTES 3 % (0-0); NEUTROPHIL # MANUAL DIFF 8.7 TH/MM3 (1.8-7.7); POLYS (SEG NEUTROPHILS) 51 % (16-70)
[2017-09-21] MEDS: FAMOTIDINE 20 MG TAB PO SCH ×2 (07:59→21:00)
[2017-09-21] MEDS: METOPROLOL TARTRATE 50 MG TAB PO SCH ×2 (07:59→21:00)
[2017-09-21] MEDS: GABAPENTIN 100 MG CAP PO SCH ×3 (07:59→17:38)
[2017-09-21] MEDS: DOCUSATE SODIUM 50 MG/SENNA 8.6 MG TAB PO SCH ×2 (07:59→21:00)
[2017-09-21] MEDS: REMOVE OLD LIDOCAINE PATCH T-DERMAL SCH (08:00)
[2017-09-21] MEDS: LISINOPRIL 5 MG TAB PO SCH (08:00)
[2017-09-21] MEDS: LIDOCAINE HCL 5% PATCH T-DERMAL SCH (08:17)
[2017-09-21] MEDS ORDERED: FUROSEMIDE 40 MG/4 ML VIAL IV PUSH ONE (10:00)
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
[2017-09-21] MEDS: ENOXAPARIN SODIUM 40 MG/0.4 ML SYRINGE SQ SCH (12:00)
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
[2017-09-21] MEDS ORDERED: fentaNYL 2MCG-BUPIV 0.125% INJ 100 ML ONE (14:07)
[2017-09-21] MEDS: HEPARIN SODIUM - SQ 10,000 UNITS/ML VIAL SQ SCH (21:00)
[2017-09-21] MEDS: hydrALAZINE HCL 20 MG/ML VIAL IV PUSH PRN (21:56)
[2017-09-21] MEDS: LABETALOL HCL 100 MG/20 ML VIAL IV PUSH PRN (21:57)
[2017-09-21] MEDS: fentaNYL 2MCG-BUPIV 0.125% INJ 100 ML EPIDURAL SCH (22:57)
[2017-09-21] MEDS ORDERED: PHARMACY ORDERED LAB ONE (23:45)
[2017-09-22] VITALS (15 sets, daily range): BP systolic 112–151; BP diastolic 66–87; PULSE 75–96; RESP 35–39; TEMP 99–99.3; O2SAT 92–98
[2017-09-22] MEDS: CHLORHEXIDINE GLUCONATE 2 % 1 PACK (2 CLOTHS) TOP SCH (04:00)
[2017-09-22] MEDS: PIPERACIL-TAZO 4.5 GM PREMIX 100 ML IV SCH ×3 (04:53→20:15)
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
[2017-09-22 05:43] LABS: AUTOMATED NEUTROPHIL # 10.3 TH/MM3 (1.8-7.7); BASOPHIL % 0.3 % (0.0-2.0); EOSINOPHIL # 0.3 TH/MM3 (0-0.4); EOSINOPHIL % 2.2 % (0.0-4.0); HEMATOCRIT 24.9 % (39.0-51.0); HEMOGLOBIN 8.3 GM/DL (13.0-17.0); LYMPH % 9.6 % (9.0-44.0); LYMPHOCYTE # 1.3 TH/MM3 (1.0-4.8); MEAN CELL VOLUME 86.7 FL (80.0-100.0); MEAN CORPUSCULAR HEMOGLOBIN 28.9 PG (27.0-34.0); MEAN CORPUSCULAR HGB CONC 33.3 % (32.0-36.0); MEAN PLATELET VOLUME 6.4 FL (7.0-11.0); MONO % 11.1 % (0.0-8.0); MONOCYTE # 1.5 TH/MM3 (0-0.9); NEUT % 76.8 % (16.0-70.0); PLATELET COUNT 335 TH/MM3 (150-450); RED BLOOD COUNT 2.87 MIL/MM3 (4.50-5.90); RED CELL DISTRIBUTION WIDTH 15.5 % (11.6-17.2); WHITE BLOOD COUNT 13.4 TH/MM3 (4.0-11.0)
[2017-09-22] MEDS: METHOCARBAMOL 500 MG TAB PO SCH ×4 (05:43→22:00)
[2017-09-22] MEDS: INSULIN ASPART SUPPLEMENTAL SCALE SQ SCH ×4 (05:45→23:45)
[2017-09-22 06:04] LABS: BICARBONATE 21.9 MEQ/L (21.0-32.0); CREATININE 0.8 MG/DL (0.60-1.30)
[2017-09-22] MEDS: DEXMEDETOMIDINE INJ 1,000 MCG in SODIUM CHLOR 0.9% 250 ML INJ 240 ML IV PRN ×2 (06:17→18:37)
[2017-09-22] MEDS: fentaNYL 2MCG-BUPIV 0.125% INJ 100 ML EPIDURAL SCH ×2 (06:39→16:23)
[2017-09-22 08:07] LABS: BANDS 15 % (0-6); CORRECTED NUCLEATED RBC 1 /100 WBC (0-0); LYMPHOCYTES 4 % (9-44); METAMYELOCYTES 7 % (0-1); MONOCYTES 6 % (0-8); MYELOCYTES 3 % (0-0); NEUTROPHIL # MANUAL DIFF 12.1 TH/MM3 (1.8-7.7); NUCLEATED RED BLOOD CELL 1 (0-0); POLYS (SEG NEUTROPHILS) 65 % (16-70)
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
[2017-09-22] MEDS: METOPROLOL TARTRATE 50 MG TAB PO SCH ×3 (09:00→21:00)
[2017-09-22] MEDS: GABAPENTIN 100 MG CAP PO SCH ×3 (09:00→18:00)
[2017-09-22] MEDS: LISINOPRIL 5 MG TAB PO SCH (09:00)
[2017-09-22] MEDS: REMOVE OLD LIDOCAINE PATCH T-DERMAL SCH (09:00)
[2017-09-22] MEDS: DOCUSATE SODIUM 50 MG/SENNA 8.6 MG TAB PO SCH ×2 (09:00→20:14)
[2017-09-22] MEDS: FAMOTIDINE 20 MG TAB PO SCH ×3 (09:00→21:00)
[2017-09-22] MEDS: HEPARIN SODIUM - SQ 10,000 UNITS/ML VIAL SQ SCH ×2 (09:00→20:14)
[2017-09-22] MEDS: LABETALOL HCL 100 MG/20 ML VIAL IV PUSH PRN ×4 (12:04→20:15)
[2017-09-22] MEDS: POTASSIUM CHLOR 40 MEQ PREMIX 100 ML IV PRN (12:16)
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
--- NOTE | 2017-09-22 16:31 | HHI.PR ---
Subjective Remarks Epidural Management Note Epidural Day: 2 Epidural Level: T10/11 Epidural Current settings: 0.125% bupivicaine with 2 mcg/mL fentanyl, 10mL/hr continuous, 5mL q15min demand. Pain level: 0 / 10 Subjective: Patient needs to be sedated with Precedex for agitated delirium and withdrawal symptoms. When patient is arousable, patient denies pain. Patient able to take 600-700 cc tidal volumes on noninvasive positive pressure ventilation. FiO2 45%. SPO2 96%. Adjuvant Pain medications: As needed Tylenol Changes made to current regimen: None. Pain regimen appears to be working for patient as he has remained extubated with flail chest. The patient has not had any IV narcotic pain medicine since the epidural went in, and denies pain when aroused from sedation. Patient still required sedation for agitated delirium and withdrawal symptoms. Medical Necessity: This patient has ongoing and active pain needs that are being met by neuraxial analgesia. Specifically, pain associated with multiple right-sided rib fractures and postthoracotomy pain. The neuraxial analgesia continues to be required today on my assessment. Norman catheter: A norman catheter IS NOT required for the epidural in this patient. This patient may ambulate with assistance. Objective Vital Signs Date Time Temp Pulse Resp B/P (MAP) Pulse Ox O2 Delivery O2 Flow Rate FiO2 09/22/17 16:23 36 09/22/17 16:14 94 40 09/22/17 16:00 82 09/22/17 12:00 99.0 95 36 151/87 (108) 95 09/22/17 12:00 95 09/22/17 11:20 96 45 09/22/17 08:36 93 45 09/22/17 08:00 99.0 75 35 116/67 (83) 93 09/22/17 08:00 93 Bi-Pap 45 09/22/17 08:00 75 09/22/17 06:39 31 09/22/17 06:00 96 09/22/17 04:25 94 45 09/22/17 04:00 96 09/22/17 04:00 99.3 96 37 112/72 (85) 93 09/22/17 02:00 93 09/22/17 00:00 99.0 91 39 134/66 (88) 92 09/22/17 00:00 91 09/21/17 23:08 92 45 09/21/17 22:57 35 09/21/17 22:00 117 09/21/17 20:00 106 09/21/17 20:00 99.0 106 33 125/68 (87) 92 09/21/17 19:34 92 45 09/21/17 19:00 93 Bi-Pap 45 09/21/17 18:00 123 I/O 09/21/17 09/21/17 09/21/17 09/22/17 09/22/17 09/22/17 07:00 15:00 23:00 07:00 15:00 23:00 Intake Total 250 ml 100 ml 591 ml 600 ml 200 ml Output Total 825 ml 1800 ml 1600 ml 1400 ml Balance -575 ml -1700 ml -1009 ml -800 ml 200 ml IV Total 250 ml 100 ml 591 ml 600 ml 200 ml Output Urine Total 825 ml 1800 ml 1600 ml 1200 ml Stool Total 0 ml 0 ml 50 ml Chest Tube Drainage Total 150 ml Result Diagram: 09/22/17 0520 09/22/17 0520 Ryan Mendoza MD Sep 22, 2017 16:31
[2017-09-22] MEDS: VANCOMYCIN 1,500 MG/NS 500 ML IV SCH ×2 (16:53)
[2017-09-23] VITALS (12 sets, daily range): BP systolic 134–175; BP diastolic 78–88; PULSE 82–95; RESP 39–49; TEMP 98.9–99.7; O2SAT 91–95
[2017-09-23] MEDS: LABETALOL HCL 100 MG/20 ML VIAL IV PUSH PRN ×5 (02:10→23:00)
[2017-09-23] MEDS: fentaNYL 2MCG-BUPIV 0.125% INJ 100 ML EPIDURAL SCH ×3 (02:36→23:03)
[2017-09-23] MEDS: hydrALAZINE HCL 20 MG/ML VIAL IV PUSH PRN ×2 (03:59→14:08)
[2017-09-23] MEDS: LORazepam 2 MG/ML VIAL IV PUSH PRN (03:59)
[2017-09-23] MEDS: PIPERACIL-TAZO 4.5 GM PREMIX 100 ML IV SCH ×3 (03:59→20:59)
[2017-09-23] MEDS: CHLORHEXIDINE GLUCONATE 2 % 1 PACK (2 CLOTHS) TOP SCH (04:00)
[2017-09-23 05:14] LABS: AUTOMATED NEUTROPHIL # 12.6 TH/MM3 (1.8-7.7); BASOPHIL # 0.1 TH/MM3 (0-0.2); BASOPHIL % 0.4 % (0.0-2.0); EOSINOPHIL # 0.3 TH/MM3 (0-0.4); EOSINOPHIL % 1.7 % (0.0-4.0); HEMATOCRIT 25.5 % (39.0-51.0); HEMOGLOBIN 8.5 GM/DL (13.0-17.0); LYMPH % 7.7 % (9.0-44.0); LYMPHOCYTE # 1.2 TH/MM3 (1.0-4.8); MEAN CELL VOLUME 85.5 FL (80.0-100.0); MEAN CORPUSCULAR HEMOGLOBIN 28.4 PG (27.0-34.0); MEAN CORPUSCULAR HGB CONC 33.2 % (32.0-36.0); MEAN PLATELET VOLUME 6.8 FL (7.0-11.0); MONO % 9.9 % (0.0-8.0); MONOCYTE # 1.6 TH/MM3 (0-0.9); NEUT % 80.3 % (16.0-70.0); PLATELET COUNT 389 TH/MM3 (150-450); RED BLOOD COUNT 2.99 MIL/MM3 (4.50-5.90); RED CELL DISTRIBUTION WIDTH 15.3 % (11.6-17.2); WHITE BLOOD COUNT 15.7 TH/MM3 (4.0-11.0)
[2017-09-23 05:23] LABS: ALBUMIN 1.9 GM/DL (3.4-5.0); AST (GOT) 37 U/L (15-37); BICARBONATE 20.5 MEQ/L (21.0-32.0); BLOOD UREA NITROGEN 18 MG/DL (7-18); CALCIUM 8.3 MG/DL (8.5-10.1); CHLORIDE 115 MEQ/L (98-107); CREATININE 0.83 MG/DL (0.60-1.30); GLOMERULAR FILTRATION RATE 97 ML/MIN (>89); GLUCOSE,RANDOM 104 MG/DL (74-106); SODIUM (NA) 147 MEQ/L (136-145)
[2017-09-23 05:24] LABS: ALT (GPT) 23 U/L (12-78)
[2017-09-23 05:26] LABS: ALKALINE PHOSPHATASE 132 U/L (45-117); TOTAL BILIRUBIN ADULT 1.4 MG/DL (0.2-1.0); TOTAL PROTEIN 6.2 GM/DL (6.4-8.2)
[2017-09-23] MEDS: METHOCARBAMOL 500 MG TAB PO SCH ×3 (06:00→22:00)
[2017-09-23 07:11] LABS: BANDS 12 % (0-6); CORRECTED NUCLEATED RBC 1 /100 WBC (0-0); LYMPHOCYTES 12 % (9-44); MONOCYTES 8 % (0-8); MYELOCYTES 5 % (0-0); NEUTROPHIL # MANUAL DIFF 12.4 TH/MM3 (1.8-7.7); NUCLEATED RED BLOOD CELL 1 (0-0); POLYS (SEG NEUTROPHILS) 62 % (16-70)
[2017-09-23 07:12] LABS: POLYCHROMASIA 3.1 % (0.0-1.9)
[2017-09-23 07:13] LABS: OVALOCYTES 1+ (NORMAL)
[2017-09-23] MEDS: VANCOMYCIN 1,500 MG/NS 500 ML IV SCH ×4 (07:34→16:53)
[2017-09-23] MEDS: INSULIN ASPART SUPPLEMENTAL SCALE SQ SCH ×4 (07:41→23:45)
[2017-09-23] MEDS: METOPROLOL TARTRATE 50 MG TAB PO SCH ×2 (08:53→21:00)
[2017-09-23] MEDS: LISINOPRIL 5 MG TAB PO SCH (08:53)
[2017-09-23] MEDS: GABAPENTIN 100 MG CAP PO SCH ×3 (08:53→18:00)
[2017-09-23] MEDS: DOCUSATE SODIUM 50 MG/SENNA 8.6 MG TAB PO SCH ×2 (08:53→21:00)
[2017-09-23] MEDS: POTASSIUM CHLOR 40 MEQ PREMIX 100 ML IV PRN (08:53)
[2017-09-23] MEDS: REMOVE OLD LIDOCAINE PATCH T-DERMAL SCH (08:54)
[2017-09-23] MEDS: HEPARIN SODIUM - SQ 10,000 UNITS/ML VIAL SQ SCH ×2 (09:42→20:59)
[2017-09-23] MEDS: DEXMEDETOMIDINE INJ 1,000 MCG in SODIUM CHLOR 0.9% 250 ML INJ 240 ML IV PRN ×2 (10:10→18:28)
[2017-09-23] MEDS: FAMOTIDINE 20 MG/2 ML VIAL IV PUSH SCH ×2 (10:25→21:00)
--- NOTE | 2017-09-23 11:11 | RADRPT ---
EXAM DATE/TIME: 09/23/2017 10:27 [facility] COMPARISON: CHEST SINGLE AP, September 20, 2017, 4:39. CHEST SINGLE AP, September 22, 2017, 4:40. INDICATIONS : Evaluate for hemothorax. MEDICAL HISTORY : Rib fractures SURGICAL HISTORY : None. ENCOUNTER: Subsequent ACUITY: 1 week PAIN SCORE: 4/10 LOCATION: Bilateral chest FINDINGS: Portable AP view of the chest demonstrates a normal-sized cardiac silhouette. Right subclavian centra l line distal tip is in the SVC. Large bore right chest tube remains present with tip at the apex of the hemithorax. No pneumothorax is visualized. There are multiple displaced right rib fractures again identified. There is increased airspace opacity in the right mid and lower lung zone and at the left lung base. Slight blunting of the costophrenic sulcus is present on the right. CONCLUSION: 1. There is stable slight blunting of the right costophrenic sulcus which may indicate a small pleura l effusion. 2. Bilateral basilar airspace consolidation that appears slightly increased from the prior studies. I t may be accentuated from the underinflation. Suggest attention to this and followup imaging. 3. Stable appearance to the right chest wall with multiple displaced right rib fractures. No pneumoth orax is visualized. Vick Hobson MD on September 23, 2017 at 11:07 Board Certified Radiologist. This report was verified electronically.
[2017-09-23] MEDS: VALPROATE INJ 250 MG in SODIUM CHLORIDE 0.9% INJ 100 ML IV SCH (11:56)
[2017-09-23] MEDS: METOPROLOL TARTRATE 5 MG/5 ML VIAL IV PUSH SCH ×2 (11:57→18:21)
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
[2017-09-24] VITALS (16 sets, daily range): BP systolic 106–193; BP diastolic 56–98; PULSE 66–104; RESP 26–37; TEMP 98.2–98.8; O2SAT 91–100
[2017-09-24] MEDS: VALPROATE INJ 250 MG in SODIUM CHLORIDE 0.9% INJ 100 ML IV SCH ×2
--- NOTE | 2017-09-24 01:59 | HHI.PR ---
Subjective Remarks Delayed Note Entry: Documentation is for my evaluation on 09/23/2017 at approximately 6pm. Epidural Management Note Epidural Day: 3 Epidural Level: T10/11 Epidural Current settings: 0.125% bupivicaine with 2 mcg/mL fentanyl, 10mL/hr continuous, 5mL q15min demand. Pain level: 0 / 10 Subjective: Patient needs to be sedated with Precedex for agitated delirium and withdrawal symptoms. When patient is arousable, patient denies pain. Patient now off BiPAP, on high flow NC. still with adequate spo2. Good chest excursion. Adjuvant Pain medications: As needed Tylenol Changes made to current regimen: None. Pain regimen appears to be working for patient as he has remained extubated with flail chest. The patient has not had any IV narcotic pain medicine since the epidural went in, and denies pain when aroused from sedation. Patient still required sedation for agitated delirium and withdrawal symptoms. Medical Necessity: This patient has ongoing and active pain needs that are being met by neuraxial analgesia. Specifically, pain associated with multiple right-sided rib fractures and postthoracotomy pain. The neuraxial analgesia continues to be required today on my assessment. Ventura catheter: A Ventura catheter IS NOT required for the epidural in this patient. This patient may ambulate with assistance. Objective Vital Signs Date Time Temp Pulse Resp B/P (MAP) Pulse Ox O2 Delivery O2 Flow Rate FiO2 09/23/17 23:03 26 09/23/17 22:00 89 09/23/17 20:44 91 High Flow Nasal Cannula 35.00 50 09/23/17 20:00 93 09/23/17 19:00 92 40.00 40 09/23/17 16:00 88 09/23/17 16:00 99.7 88 49 162/83 (109) 93 09/23/17 12:15 99.7 88 42 175/88 (117) 95 09/23/17 12:15 88 09/23/17 11:57 39 09/23/17 08:00 99.1 93 39 158/78 (104) 92 09/23/17 08:00 93 09/23/17 08:00 92 40.00 50 09/23/17 07:57 94 High Flow Nasal Cannula 35.00 50 09/23/17 06:00 93 09/23/17 04:05 93 High Flow Nasal Cannula 35.00 50 09/23/17 04:00 99.4 94 39 134/88 (103) 95 09/23/17 04:00 95 09/23/17 02:00 88 I/O 09/23/17 09/23/17 09/23/17 09/24/17 09/24/17 09/24/17 07:00 15:00 23:00 07:00 15:00 23:00 Intake Total 1150 ml 750 ml Output Total 750 ml 910 ml Balance -750 ml 1150 ml -160 ml IV Total 1150 ml 750 ml Output Urine Total 750 ml 850 ml Stool Total 0 ml Chest Tube Drainage Total 0 ml 60 ml # Bowel Movements 3 Result Diagram: 09/23/17 0430 09/23/17 0430 Ryan Mendoza MD Sep 24, 2017 01:59
--- NOTE | 2017-09-24 01:59 | HHI.PR ---
Subjective Remarks Epidural Management Note Epidural Day: 4 Epidural Level: T10/11 Epidural Current settings: 0.125% bupivicaine with 2 mcg/mL fentanyl, 10mL/hr continuous, 5mL q15min demand. Pain level: 0 / 10 Subjective: Patient needs to be sedated with Precedex for agitated delirium and withdrawal symptoms. When patient is arousable, patient denies pain. Patient now off BiPAP, on high flow NC. still with adequate spo2. Good chest excursion. more tachypneic today, but still stable. remains afebrile despite wbc elevation. does not appear septic or toxic. Adjuvant Pain medications: As needed Tylenol Changes made to current regimen: None. Pain regimen appears to be working for patient as he has remained extubated with flail chest. The patient has not had any IV narcotic pain medicine since the epidural went in, and denies pain when aroused from sedation. Patient still required sedation for agitated delirium and withdrawal symptoms. Medical Necessity: This patient has ongoing and active pain needs that are being met by neuraxial analgesia. Specifically, pain associated with multiple right-sided rib fractures and postthoracotomy pain. The neuraxial analgesia continues to be required today on my assessment. Ventura catheter: A Ventura catheter IS NOT required for the epidural in this patient. This patient may ambulate with assistance. Objective Vital Signs Date Time Temp Pulse Resp B/P (MAP) Pulse Ox O2 Delivery O2 Flow Rate FiO2 09/23/17 23:03 26 09/23/17 22:00 89 09/23/17 20:44 91 High Flow Nasal Cannula 35.00 50 09/23/17 20:00 93 09/23/17 19:00 92 40.00 40 09/23/17 16:00 88 09/23/17 16:00 99.7 88 49 162/83 (109) 93 09/23/17 12:15 99.7 88 42 175/88 (117) 95 09/23/17 12:15 88 09/23/17 11:57 39 09/23/17 08:00 99.1 93 39 158/78 (104) 92 09/23/17 08:00 93 09/23/17 08:00 92 40.00 50 09/23/17 07:57 94 High Flow Nasal Cannula 35.00 50 09/23/17 06:00 93 09/23/17 04:05 93 High Flow Nasal Cannula 35.00 50 09/23/17 04:00 99.4 94 39 134/88 (103) 95 09/23/17 04:00 95 09/23/17 02:00 88 I/O 09/23/17 09/23/17 09/23/17 09/24/17 09/24/17 09/24/17 07:00 15:00 23:00 07:00 15:00 23:00 Intake Total 1150 ml 750 ml Output Total 750 ml 910 ml Balance -750 ml 1150 ml -160 ml IV Total 1150 ml 750 ml Output Urine Total 750 ml 850 ml Stool Total 0 ml Chest Tube Drainage Total 0 ml 60 ml # Bowel Movements 3 Result Diagram: 09/23/17 0430 09/23/17 043 Ryan Mendoza MD Sep 24, 2017 01:59
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
[2017-09-24] MEDS: LABETALOL HCL 100 MG/20 ML VIAL IV PUSH PRN ×2 (02:31→04:30)
[2017-09-24] MEDS: CHLORHEXIDINE GLUCONATE 2 % 1 PACK (2 CLOTHS) TOP SCH (04:00)
[2017-09-24] MEDS ORDERED: PHARMACY ORDERED LAB ONE ×2 (04:45→16:45)
[2017-09-24] MEDS: PIPERACIL-TAZO 4.5 GM PREMIX 100 ML IV SCH ×3 (04:55→21:34)
[2017-09-24 05:25] LABS: AUTOMATED NEUTROPHIL # 15.1 TH/MM3 (1.8-7.7); BASOPHIL # 0.1 TH/MM3 (0-0.2); BASOPHIL % 0.5 % (0.0-2.0); EOSINOPHIL # 0.1 TH/MM3 (0-0.4); EOSINOPHIL % 0.8 % (0.0-4.0); HEMATOCRIT 25.2 % (39.0-51.0); HEMOGLOBIN 8.4 GM/DL (13.0-17.0); LYMPH % 6.8 % (9.0-44.0); LYMPHOCYTE # 1.2 TH/MM3 (1.0-4.8); MEAN CELL VOLUME 86.7 FL (80.0-100.0); MEAN CORPUSCULAR HEMOGLOBIN 28.9 PG (27.0-34.0); MEAN CORPUSCULAR HGB CONC 33.4 % (32.0-36.0); MEAN PLATELET VOLUME 6.5 FL (7.0-11.0); MONO % 7.8 % (0.0-8.0); MONOCYTE # 1.4 TH/MM3 (0-0.9); NEUT % 84.1 % (16.0-70.0); PLATELET COUNT 449 TH/MM3 (150-450); RED BLOOD COUNT 2.91 MIL/MM3 (4.50-5.90)
[2017-09-24 05:39] LABS: BICARBONATE 18.6 MEQ/L (21.0-32.0); CALCIUM 8.3 MG/DL (8.5-10.1); CREATININE 0.69 MG/DL (0.60-1.30)
[2017-09-24] MEDS: INSULIN ASPART SUPPLEMENTAL SCALE SQ SCH ×4 (05:45→23:45)
[2017-09-24] MEDS: METHOCARBAMOL 500 MG TAB PO SCH ×3 (06:00→21:35)
[2017-09-24] MEDS: METOPROLOL TARTRATE 5 MG/5 ML VIAL IV PUSH SCH ×4 (06:00→17:44)
[2017-09-24] MEDS: VANCOMYCIN 1,500 MG/NS 500 ML IV SCH ×4 (06:06→17:45)
[2017-09-24] MEDS ORDERED: ETOMIDATE 40 MG/20 ML VIAL ONE (07:06)
[2017-09-24] MEDS ORDERED: MIDAZOLAM HCL 5 MG/ML VIAL (1 ML) ONE (07:07)
[2017-09-24] MEDS ORDERED: ROCURONIUM INJ 50 MG/5 ML VIAL ONE (07:07)
[2017-09-24] MEDS ORDERED: PROPOFOL 500 MG/50 ML INJ 50 ML ONE (07:15)
--- NOTE | 2017-09-24 07:24 | PD.PROCEDR ---
Procedure Note Procedure Acute hypoxemic respiratory failure, severe sepsis INTUBATION: The patient was put in optimal position for the procedure. Rapid sequence intubation was initiated by me using 10 milligrams of Versed IV and 50 milligrams of rocuronium IV. DL with Mac 4 blade Grade 1 view single attempt. The patient was intubated with a 8.0 cuffed endotracheal tube. Tube placement was confirmed by visualization of the tube and balloon passing through the cords , capnometry and subsequent chest x-ray. Breath sounds were equal and well aerated bilaterally postintubation. No breath sounds over stomach. Patient tolerated procedure well. Lisa Hickman MD Sep 24, 2017 07:24
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
[2017-09-24] MEDS: CHLORHEXIDINE 0.12% (ORAL KIT) 15 ML CUP MT SCH ×2 (07:54→21:36)
[2017-09-24 08:15] LABS: BANDS 19 % (0-6); LYMPHOCYTES 8 % (9-44); METAMYELOCYTES 1 % (0-1); MONOCYTES 2 % (0-8); PLASMA CELLS 1 % (0-0); POLYS (SEG NEUTROPHILS) 69 % (16-70)
[2017-09-24 08:18] LABS: OVALOCYTES 1+ (NORMAL)
[2017-09-24] MEDS: LISINOPRIL 5 MG TAB PO SCH (09:00)
[2017-09-24] MEDS: DOCUSATE SODIUM 50 MG/SENNA 8.6 MG TAB PO SCH ×2 (09:00→21:00)
[2017-09-24] MEDS: HEPARIN SODIUM - SQ 10,000 UNITS/ML VIAL SQ SCH ×2 (09:00→21:00)
[2017-09-24] MEDS: REMOVE OLD LIDOCAINE PATCH T-DERMAL SCH (09:00)
[2017-09-24] MEDS: GABAPENTIN 100 MG CAP PO SCH ×3 (09:33→17:44)
[2017-09-24] MEDS: FAMOTIDINE 20 MG/2 ML VIAL IV PUSH SCH ×2 (09:33→21:35)
[2017-09-24] MEDS: PROPOFOL 1000 MG/100 ML INJ 100 ML IV PRN ×3 (09:34→18:29)
[2017-09-24] MEDS: fentaNYL 2MCG-BUPIV 0.125% INJ 100 ML EPIDURAL SCH (09:46)
[2017-09-24] MEDS: oxyCODONE HCL ORAL CONC 5 MG/0.25 ML SYRINGE PO SCH ×4 (10:22→21:35)
[2017-09-24] MEDS: QUEtiapine FUMARATE 25 MG TAB PO SCH ×2 (10:22→21:35)
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
[2017-09-24] MEDS: VALPROIC ACID SYRUP 250 MG/5 ML UDC PO SCH (21:35)
[2017-09-25] VITALS (17 sets, daily range): BP systolic 131–160; BP diastolic 65–81; PULSE 83–102; RESP 18–38; TEMP 98.1–99; O2SAT 100
[2017-09-25] MEDS: METOPROLOL TARTRATE 5 MG/5 ML VIAL IV PUSH SCH ×5 (00:59→18:00)
[2017-09-25] MEDS: oxyCODONE HCL ORAL CONC 5 MG/0.25 ML SYRINGE PO SCH ×6 (00:59→21:11)
[2017-09-25] MEDS: PROPOFOL 1000 MG/100 ML INJ 100 ML IV PRN ×5 (02:00→21:40)
[2017-09-25] MEDS: CHLORHEXIDINE GLUCONATE 2 % 1 PACK (2 CLOTHS) TOP SCH (04:00)
[2017-09-25] MEDS: PIPERACIL-TAZO 4.5 GM PREMIX 100 ML IV SCH ×3 (04:03→21:11)
[2017-09-25] MEDS: INSULIN ASPART SUPPLEMENTAL SCALE SQ SCH ×4 (05:45→23:45)
[2017-09-25] MEDS: VANCOMYCIN 1,500 MG/NS 500 ML IV SCH ×4 (05:51→17:00)
[2017-09-25] MEDS: METHOCARBAMOL 500 MG TAB PO SCH ×3 (05:51→21:12)
[2017-09-25 05:53] LABS: AUTOMATED NEUTROPHIL # 11.9 TH/MM3 (1.8-7.7); BASOPHIL # 0.1 TH/MM3 (0-0.2); BASOPHIL % 0.5 % (0.0-2.0); EOSINOPHIL # 0.6 TH/MM3 (0-0.4); EOSINOPHIL % 3.6 % (0.0-4.0); HEMATOCRIT 23.8 % (39.0-51.0); HEMOGLOBIN 8.1 GM/DL (13.0-17.0); LYMPH % 10.7 % (9.0-44.0); LYMPHOCYTE # 1.6 TH/MM3 (1.0-4.8); MEAN CELL VOLUME 86.4 FL (80.0-100.0); MEAN CORPUSCULAR HEMOGLOBIN 29.4 PG (27.0-34.0); MEAN PLATELET VOLUME 6.8 FL (7.0-11.0); MONO % 8.1 % (0.0-8.0); MONOCYTE # 1.3 TH/MM3 (0-0.9); NEUT % 77.1 % (16.0-70.0); PLATELET COUNT 518 TH/MM3 (150-450); RED BLOOD COUNT 2.76 MIL/MM3 (4.50-5.90); WHITE BLOOD COUNT 15.4 TH/MM3 (4.0-11.0)
[2017-09-25 06:13] LABS: BICARBONATE 19.6 MEQ/L (21.0-32.0); CALCIUM 8.6 MG/DL (8.5-10.1); CREATININE 0.81 MG/DL (0.60-1.30)
[2017-09-25] MEDS: CHLORHEXIDINE 0.12% (ORAL KIT) 15 ML CUP MT SCH ×2 (07:36→20:00)
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
[2017-09-25] MEDS: REMOVE OLD LIDOCAINE PATCH T-DERMAL SCH (09:00)
[2017-09-25] MEDS: LISINOPRIL 5 MG TAB PO SCH (09:00)
[2017-09-25] MEDS: GABAPENTIN 100 MG CAP PO SCH ×3 (09:06→18:11)
[2017-09-25] MEDS: FAMOTIDINE 20 MG/2 ML VIAL IV PUSH SCH ×2 (09:06→21:12)
[2017-09-25] MEDS: QUEtiapine FUMARATE 25 MG TAB PO SCH ×2 (09:07→21:11)
[2017-09-25] MEDS: VALPROIC ACID SYRUP 250 MG/5 ML UDC PO SCH ×2 (09:07→21:12)
[2017-09-25] MEDS: DOCUSATE SODIUM 50 MG/SENNA 8.6 MG TAB PO SCH ×2 (09:13→21:00)
[2017-09-25] MEDS: POTASSIUM CHLOR 40 MEQ PREMIX 100 ML IV PRN ×2 (09:14→12:17)
[2017-09-25] MEDS: HEPARIN SODIUM - SQ 10,000 UNITS/ML VIAL SQ SCH ×2 (09:16→21:13)
[2017-09-25] MEDS ORDERED: SODIUM CHLOR 0.9% 1000 ML INJ 1,000 ML IV ONE (10:00)
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
[2017-09-25] MEDS ORDERED: PHARMACY ORDERED LAB ONE (16:45)
[2017-09-25] MEDS: LABETALOL HCL 100 MG/20 ML VIAL IV PUSH PRN (21:35)
[2017-09-26] VITALS (18 sets, daily range): BP systolic 123–169; BP diastolic 64–84; PULSE 72–100; RESP 12–29; TEMP 98.9–99.9; O2SAT 97–100
[2017-09-26] MEDS: METOPROLOL TARTRATE 5 MG/5 ML VIAL IV PUSH SCH ×5 (00:14→23:57)
[2017-09-26] MEDS: PROPOFOL 1000 MG/100 ML INJ 100 ML IV PRN ×7 (00:14→21:22)
[2017-09-26] MEDS: oxyCODONE HCL ORAL CONC 5 MG/0.25 ML SYRINGE PO SCH ×6 (01:33→21:29)
[2017-09-26] MEDS: CHLORHEXIDINE GLUCONATE 2 % 1 PACK (2 CLOTHS) TOP SCH (03:09)
[2017-09-26] MEDS: PIPERACIL-TAZO 4.5 GM PREMIX 100 ML IV SCH ×3 (03:12→19:51)
[2017-09-26] MEDS ORDERED: PHARMACY ORDERED LAB ONE (04:45)
[2017-09-26 04:58] LABS: BASOPHIL # 0.1 TH/MM3 (0-0.2); BASOPHIL % 0.7 % (0.0-2.0); EOSINOPHIL # 0.8 TH/MM3 (0-0.4); EOSINOPHIL % 6.1 % (0.0-4.0); HEMATOCRIT 23.5 % (39.0-51.0); HEMOGLOBIN 7.8 GM/DL (13.0-17.0); LYMPH % 11.9 % (9.0-44.0); LYMPHOCYTE # 1.6 TH/MM3 (1.0-4.8); MEAN CELL VOLUME 87.4 FL (80.0-100.0); MEAN CORPUSCULAR HGB CONC 33.1 % (32.0-36.0); MEAN PLATELET VOLUME 6.8 FL (7.0-11.0); MONO % 8.1 % (0.0-8.0); MONOCYTE # 1.1 TH/MM3 (0-0.9); NEUT % 73.2 % (16.0-70.0); PLATELET COUNT 559 TH/MM3 (150-450); RED BLOOD COUNT 2.69 MIL/MM3 (4.50-5.90); RED CELL DISTRIBUTION WIDTH 16.2 % (11.6-17.2); WHITE BLOOD COUNT 13.6 TH/MM3 (4.0-11.0)
[2017-09-26] MEDS: METHOCARBAMOL 500 MG TAB PO SCH ×3 (05:03→21:28)
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
[2017-09-26 05:22] LABS: BICARBONATE 21.7 MEQ/L (21.0-32.0); CALCIUM 8.3 MG/DL (8.5-10.1); CREATININE 0.9 MG/DL (0.60-1.30)
[2017-09-26 05:26] LABS: BANDS 5 % (0-6); CORRECTED NUCLEATED RBC 1 /100 WBC (0-0); LYMPHOCYTES 6 % (9-44); METAMYELOCYTES 1 % (0-1); MONOCYTES 4 % (0-8); MYELOCYTES 2 % (0-0); NUCLEATED RED BLOOD CELL 1 (0-0); POLYS (SEG NEUTROPHILS) 73 % (16-70)
[2017-09-26 05:27] LABS: TOXIC GRANULATION 1+ (NORMAL)
[2017-09-26] MEDS: INSULIN ASPART SUPPLEMENTAL SCALE SQ SCH ×4 (05:36→23:45)
[2017-09-26] MEDS: POTASSIUM CHLOR 40 MEQ PREMIX 100 ML IV PRN (05:44)
[2017-09-26] MEDS: VANCOMYCIN 1,500 MG/NS 500 ML IV SCH ×4 (06:22→17:55)
[2017-09-26] MEDS: DOCUSATE SODIUM 50 MG/SENNA 8.6 MG TAB PO SCH ×2 (09:00→21:00)
[2017-09-26] MEDS: REMOVE OLD LIDOCAINE PATCH T-DERMAL SCH (09:00)
[2017-09-26] MEDS: LABETALOL HCL 100 MG/20 ML VIAL IV PUSH PRN (09:18)
[2017-09-26] MEDS: LISINOPRIL 5 MG TAB PO SCH (09:19)
[2017-09-26] MEDS: VALPROIC ACID SYRUP 250 MG/5 ML UDC PO SCH ×2 (09:19→21:28)
[2017-09-26] MEDS: QUEtiapine FUMARATE 25 MG TAB PO SCH ×2 (09:19→21:27)
[2017-09-26] MEDS: GABAPENTIN 100 MG CAP PO SCH ×3 (09:19→17:47)
[2017-09-26] MEDS: FAMOTIDINE 20 MG/2 ML VIAL IV PUSH SCH ×2 (09:19→21:28)
[2017-09-26] MEDS: HEPARIN SODIUM - SQ 10,000 UNITS/ML VIAL SQ SCH ×2 (09:19→21:28)
[2017-09-26] MEDS: CHLORHEXIDINE 0.12% (ORAL KIT) 15 ML CUP MT SCH ×2 (09:33→19:51)
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
[2017-09-27] VITALS (18 sets, daily range): BP systolic 129–181; BP diastolic 67–81; PULSE 79–95; RESP 13–30; TEMP 98.4–100.7; O2SAT 96–100
[2017-09-27] MEDS: PROPOFOL 1000 MG/100 ML INJ 100 ML IV PRN ×6 (00:15→20:56)
[2017-09-27] MEDS: oxyCODONE HCL ORAL CONC 5 MG/0.25 ML SYRINGE PO SCH ×6 (01:45→20:54)
[2017-09-27] MEDS: PIPERACIL-TAZO 4.5 GM PREMIX 100 ML IV SCH ×3 (03:52→20:50)
[2017-09-27] MEDS: CHLORHEXIDINE GLUCONATE 2 % 1 PACK (2 CLOTHS) TOP SCH (04:00)
[2017-09-27] MEDS ORDERED: PHARMACY ORDERED LAB ONE (04:45)
[2017-09-27 04:54] LABS: AUTOMATED NEUTROPHIL # 9.2 TH/MM3 (1.8-7.7); BASOPHIL # 0.1 TH/MM3 (0-0.2); BASOPHIL % 0.7 % (0.0-2.0); EOSINOPHIL # 0.9 TH/MM3 (0-0.4); EOSINOPHIL % 7.1 % (0.0-4.0); HEMATOCRIT 25.5 % (39.0-51.0); HEMOGLOBIN 8.3 GM/DL (13.0-17.0); LYMPHOCYTE # 1.5 TH/MM3 (1.0-4.8); MEAN CELL VOLUME 88.1 FL (80.0-100.0); MEAN CORPUSCULAR HEMOGLOBIN 28.6 PG (27.0-34.0); MEAN CORPUSCULAR HGB CONC 32.4 % (32.0-36.0); MEAN PLATELET VOLUME 6.8 FL (7.0-11.0); MONO % 8.6 % (0.0-8.0); MONOCYTE # 1.1 TH/MM3 (0-0.9); NEUT % 71.6 % (16.0-70.0); PLATELET COUNT 628 TH/MM3 (150-450); RED CELL DISTRIBUTION WIDTH 16.7 % (11.6-17.2); WHITE BLOOD COUNT 12.8 TH/MM3 (4.0-11.0)
[2017-09-27 05:31] LABS: ALBUMIN 1.8 GM/DL (3.4-5.0); ALT (GPT) 16 U/L (12-78); AST (GOT) 19 U/L (15-37); BICARBONATE 20.9 MEQ/L (21.0-32.0); BLOOD UREA NITROGEN 13 MG/DL (7-18); CALCIUM 8.1 MG/DL (8.5-10.1); CHLORIDE 118 MEQ/L (98-107); CREATININE 0.77 MG/DL (0.60-1.30); GLOMERULAR FILTRATION RATE 106 ML/MIN (>89); GLUCOSE,RANDOM 132 MG/DL (74-106); SODIUM (NA) 146 MEQ/L (136-145)
[2017-09-27 05:33] LABS: ALKALINE PHOSPHATASE 115 U/L (45-117); TOTAL BILIRUBIN ADULT 0.5 MG/DL (0.2-1.0); TOTAL PROTEIN 6.1 GM/DL (6.4-8.2); VANCOMYCIN TROUGH 18.8 MCG/ML (5.0-10.0)
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
[2017-09-27] MEDS: INSULIN ASPART SUPPLEMENTAL SCALE SQ SCH ×4 (05:39→23:45)
[2017-09-27] MEDS: METOPROLOL TARTRATE 5 MG/5 ML VIAL IV PUSH SCH ×3 (05:43→18:09)
[2017-09-27] MEDS: VANCOMYCIN 1,500 MG/NS 500 ML IV SCH ×4 (05:43→17:59)
[2017-09-27] MEDS: METHOCARBAMOL 500 MG TAB PO SCH ×3 (05:43→20:53)
[2017-09-27 07:08] LABS: BANDS 4 % (0-6); LYMPHOCYTES 11 % (9-44); METAMYELOCYTES 1 % (0-1); MONOCYTES 9 % (0-8); MYELOCYTES 4 % (0-0); NEUTROPHIL # MANUAL DIFF 8.7 TH/MM3 (1.8-7.7); POLYS (SEG NEUTROPHILS) 59 % (16-70)
[2017-09-27] MEDS: CHLORHEXIDINE 0.12% (ORAL KIT) 15 ML CUP MT SCH ×2 (08:02→20:51)
[2017-09-27] MEDS: VALPROIC ACID SYRUP 250 MG/5 ML UDC PO SCH ×2 (08:03→20:52)
[2017-09-27] MEDS: DOCUSATE SODIUM 50 MG/SENNA 8.6 MG TAB PO SCH ×2 (08:03→20:53)
[2017-09-27] MEDS: LISINOPRIL 5 MG TAB PO SCH (08:03)
[2017-09-27] MEDS: FAMOTIDINE 20 MG/2 ML VIAL IV PUSH SCH ×2 (08:03→20:52)
[2017-09-27] MEDS: GABAPENTIN 100 MG CAP PO SCH ×3 (08:03→18:10)
[2017-09-27] MEDS: QUEtiapine FUMARATE 25 MG TAB PO SCH ×2 (08:04→20:53)
[2017-09-27] MEDS: HEPARIN SODIUM - SQ 10,000 UNITS/ML VIAL SQ SCH ×2 (08:04→20:53)
[2017-09-27] MEDS: REMOVE OLD LIDOCAINE PATCH T-DERMAL SCH (08:04)
[2017-09-27] MEDS ORDERED: FUROSEMIDE 40 MG/4 ML VIAL IV PUSH ONE (09:45)
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
[2017-09-28] VITALS (18 sets, daily range): BP systolic 147–167; BP diastolic 79–89; PULSE 71–101; RESP 20–31; TEMP 99.4–100.3; O2SAT 92–100
[2017-09-28] MEDS: METOPROLOL TARTRATE 5 MG/5 ML VIAL IV PUSH SCH ×4 (00:26→17:00)
[2017-09-28] MEDS: PROPOFOL 1000 MG/100 ML INJ 100 ML IV PRN ×3 (00:27→08:26)
[2017-09-28] MEDS: oxyCODONE HCL ORAL CONC 5 MG/0.25 ML SYRINGE PO SCH ×6 (02:36→21:28)
[2017-09-28] MEDS: PIPERACIL-TAZO 4.5 GM PREMIX 100 ML IV SCH ×3 (03:12→20:28)
[2017-09-28] MEDS: CHLORHEXIDINE GLUCONATE 2 % 1 PACK (2 CLOTHS) TOP SCH (03:13)
[2017-09-28] MEDS: VANCOMYCIN 1,500 MG/NS 500 ML IV SCH ×4 (05:33→17:00)
[2017-09-28] MEDS: METHOCARBAMOL 500 MG TAB PO SCH ×3 (05:33→21:28)
[2017-09-28] MEDS: INSULIN ASPART SUPPLEMENTAL SCALE SQ SCH ×4 (05:45→23:45)
--- NOTE | 2017-09-28 06:19 | RADRPT ---
EXAM DATE/TIME: 09/28/2017 05:22 [facility] COMPARISON: CHEST SINGLE AP, September 27, 2017, 4:31. INDICATIONS : Short of breath. MEDICAL HISTORY : Right rib fractures. SURGICAL HISTORY : None. ENCOUNTER: Subsequent ACUITY: 1 week PAIN SCORE: 0/10 LOCATION: Bilateral chest FINDINGS: Portable AP view of the chest demonstrates a normal-sized cardiac silhouette. Endotracheal tube and n asogastric tube remain present. The right chest tube has been removed. There is mild atelectasis at t he left lung base. Patchy airspace opacity remains present in the right midlung zone. Multiple displa berenice right rib fractures remain visualized. CONCLUSION: 1. No pneumothorax is visualized following right chest tube removal. The multiple displaced right rib fractures are stable. 2. Stable mild airspace opacity in the right midlung. Vick Hobson MD on September 28, 2017 at 6:16 Board Certified Radiologist. This report was verified electronically.
[2017-09-28 06:44] LABS: ALBUMIN 1.7 GM/DL (3.4-5.0); ALT (GPT) 16 U/L (12-78); AST (GOT) 28 U/L (15-37); BICARBONATE 17.8 MEQ/L (21.0-32.0); BLOOD UREA NITROGEN 12 MG/DL (7-18); CALCIUM 7.8 MG/DL (8.5-10.1); CHLORIDE 116 MEQ/L (98-107); GLOMERULAR FILTRATION RATE 101 ML/MIN (>89); GLUCOSE,RANDOM 107 MG/DL (74-106); SODIUM (NA) 141 MEQ/L (136-145)
[2017-09-28 06:46] LABS: ALKALINE PHOSPHATASE 143 U/L (45-117); TOTAL BILIRUBIN ADULT 0.6 MG/DL (0.2-1.0); TOTAL PROTEIN 6.5 GM/DL (6.4-8.2)
[2017-09-28] MEDS: CHLORHEXIDINE 0.12% (ORAL KIT) 15 ML CUP MT SCH ×2 (08:00→20:30)
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
[2017-09-28] MEDS: VALPROIC ACID SYRUP 250 MG/5 ML UDC PO SCH ×2 (08:26→20:26)
[2017-09-28] MEDS: QUEtiapine FUMARATE 25 MG TAB PO SCH ×2 (08:26→20:28)
[2017-09-28] MEDS: LISINOPRIL 5 MG TAB PO SCH (08:26)
[2017-09-28] MEDS: GABAPENTIN 100 MG CAP PO SCH ×3 (08:26→17:00)
[2017-09-28] MEDS: FAMOTIDINE 20 MG/2 ML VIAL IV PUSH SCH ×2 (08:27→20:27)
[2017-09-28] MEDS: HEPARIN SODIUM - SQ 10,000 UNITS/ML VIAL SQ SCH ×2 (08:27→20:27)
[2017-09-28] MEDS: DOCUSATE SODIUM 50 MG/SENNA 8.6 MG TAB PO SCH ×2 (09:00→20:28)
[2017-09-28] MEDS ORDERED: FUROSEMIDE 40 MG/4 ML VIAL IV PUSH ONE (10:15)
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
[2017-09-28] MEDS: DEXMEDETOMIDINE INJ 200 MCG in SODIUM CHLORIDE 0.9% INJ 50 ML IV PRN ×3 (11:14→20:25)
[2017-09-28 12:33] LABS: BASOPHIL # 0.1 TH/MM3 (0-0.2); BASOPHIL % 0.6 % (0.0-2.0); EOSINOPHIL # 0.9 TH/MM3 (0-0.4); EOSINOPHIL % 6.7 % (0.0-4.0); HEMATOCRIT 25.1 % (39.0-51.0); HEMOGLOBIN 8.3 GM/DL (13.0-17.0); LYMPHOCYTE # 1.7 TH/MM3 (1.0-4.8); MEAN CELL VOLUME 87.5 FL (80.0-100.0); MEAN CORPUSCULAR HEMOGLOBIN 28.8 PG (27.0-34.0); MEAN CORPUSCULAR HGB CONC 32.9 % (32.0-36.0); MEAN PLATELET VOLUME 6.8 FL (7.0-11.0); MONO % 9.7 % (0.0-8.0); MONOCYTE # 1.3 TH/MM3 (0-0.9); PLATELET COUNT 636 TH/MM3 (150-450); RED BLOOD COUNT 2.87 MIL/MM3 (4.50-5.90); WHITE BLOOD COUNT 12.8 TH/MM3 (4.0-11.0)
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
[2017-09-29] VITALS (17 sets, daily range): BP systolic 136–168; BP diastolic 50–87; PULSE 72–118; RESP 18–36; TEMP 96.3–100.5; O2SAT 88–100
[2017-09-29] MEDS: oxyCODONE HCL ORAL CONC 5 MG/0.25 ML SYRINGE PO SCH ×6 (02:19→20:53)
[2017-09-29] MEDS: DEXMEDETOMIDINE INJ 200 MCG in SODIUM CHLORIDE 0.9% INJ 50 ML IV PRN ×3 (02:20→08:23)
[2017-09-29] MEDS: CHLORHEXIDINE GLUCONATE 2 % 1 PACK (2 CLOTHS) TOP SCH (03:51)
[2017-09-29] MEDS: PIPERACIL-TAZO 4.5 GM PREMIX 100 ML IV SCH ×2 (03:51→11:48)
[2017-09-29] MEDS ORDERED: PHARMACY ORDERED LAB ONE (04:45)
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
[2017-09-29] MEDS: METHOCARBAMOL 500 MG TAB PO SCH ×3 (05:30→20:52)
[2017-09-29] MEDS: VANCOMYCIN 1,500 MG/NS 500 ML IV SCH ×4 (05:30→17:46)
[2017-09-29] MEDS: METOPROLOL TARTRATE 5 MG/5 ML VIAL IV PUSH SCH ×5 (05:30→23:19)
[2017-09-29] MEDS: INSULIN ASPART SUPPLEMENTAL SCALE SQ SCH ×4 (05:31→23:18)
[2017-09-29 06:54] LABS: AUTOMATED NEUTROPHIL # 9.5 TH/MM3 (1.8-7.7); BASOPHIL # 0.1 TH/MM3 (0-0.2); BASOPHIL % 0.6 % (0.0-2.0); EOSINOPHIL # 0.6 TH/MM3 (0-0.4); EOSINOPHIL % 4.8 % (0.0-4.0); HEMATOCRIT 22.1 % (39.0-51.0); HEMOGLOBIN 7.7 GM/DL (13.0-17.0); LYMPH % 11.9 % (9.0-44.0); LYMPHOCYTE # 1.5 TH/MM3 (1.0-4.8); MEAN CELL VOLUME 85.8 FL (80.0-100.0); MEAN CORPUSCULAR HEMOGLOBIN 29.8 PG (27.0-34.0); MEAN CORPUSCULAR HGB CONC 34.7 % (32.0-36.0); MEAN PLATELET VOLUME 6.8 FL (7.0-11.0); MONO % 9.7 % (0.0-8.0); MONOCYTE # 1.3 TH/MM3 (0-0.9); PLATELET COUNT 648 TH/MM3 (150-450); RED BLOOD COUNT 2.58 MIL/MM3 (4.50-5.90); RED CELL DISTRIBUTION WIDTH 15.9 % (11.6-17.2)
[2017-09-29 07:25] LABS: ALBUMIN 1.8 GM/DL (3.4-5.0); AST (GOT) 22 U/L (15-37); BICARBONATE 23.9 MEQ/L (21.0-32.0); BLOOD UREA NITROGEN 11 MG/DL (7-18); CALCIUM 7.5 MG/DL (8.5-10.1); CHLORIDE 109 MEQ/L (98-107); CREATININE 0.85 MG/DL (0.60-1.30); GLOMERULAR FILTRATION RATE 94 ML/MIN (>89); GLUCOSE,RANDOM 122 MG/DL (74-106); SODIUM (NA) 142 MEQ/L (136-145)
[2017-09-29 07:28] LABS: ALKALINE PHOSPHATASE 150 U/L (45-117); ALT (GPT) 15 U/L (12-78); TOTAL BILIRUBIN ADULT 0.6 MG/DL (0.2-1.0); TOTAL PROTEIN 6.3 GM/DL (6.4-8.2)
[2017-09-29] MEDS: CHLORHEXIDINE 0.12% (ORAL KIT) 15 ML CUP MT SCH ×2 (07:51→20:00)
[2017-09-29] MEDS: HEPARIN SODIUM - SQ 10,000 UNITS/ML VIAL SQ SCH ×2 (08:04→20:54)
[2017-09-29] MEDS: QUEtiapine FUMARATE 25 MG TAB PO SCH ×2 (08:05→20:52)
[2017-09-29] MEDS: FAMOTIDINE 20 MG/2 ML VIAL IV PUSH SCH ×2 (08:05→20:53)
[2017-09-29] MEDS: VALPROIC ACID SYRUP 250 MG/5 ML UDC PO SCH ×2 (08:05→20:52)
[2017-09-29] MEDS: GABAPENTIN 100 MG CAP PO SCH ×3 (08:05→17:40)
[2017-09-29] MEDS: FUROSEMIDE 40 MG/4 ML VIAL IV PUSH SCH (08:05)
[2017-09-29] MEDS: DOCUSATE SODIUM 50 MG/SENNA 8.6 MG TAB PO SCH ×2 (08:05→20:53)
[2017-09-29] MEDS: REMOVE OLD LIDOCAINE PATCH T-DERMAL SCH (08:06)
[2017-09-29] MEDS: LISINOPRIL 5 MG TAB PO SCH (08:08)
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
[2017-09-29] MEDS: LABETALOL HCL 100 MG/20 ML VIAL IV PUSH PRN (16:17)
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
[2017-09-29] MEDS: hydrALAZINE HCL 20 MG/ML VIAL IV PUSH PRN (21:18)
[2017-09-29] MEDS: MORPHINE SULFATE 4 MG/ML INJ IV PUSH PRN (23:19)
[2017-09-30] VITALS (12 sets, daily range): BP systolic 142–175; BP diastolic 78–98; PULSE 98–122; RESP 26–32; TEMP 99.3–100.4; O2SAT 94–100
[2017-09-30] MEDS: oxyCODONE HCL ORAL CONC 5 MG/0.25 ML SYRINGE PO SCH ×6 (01:43→21:11)
[2017-09-30] MEDS: CHLORHEXIDINE GLUCONATE 2 % 1 PACK (2 CLOTHS) TOP SCH (03:55)
[2017-09-30] MEDS: LABETALOL HCL 100 MG/20 ML VIAL IV PUSH PRN ×5 (04:06→21:12)
[2017-09-30] MEDS: METHOCARBAMOL 500 MG TAB PO SCH ×3 (05:02→21:11)
[2017-09-30] MEDS: METOPROLOL TARTRATE 5 MG/5 ML VIAL IV PUSH SCH ×3 (05:02→18:39)
[2017-09-30 05:25] LABS: AUTOMATED NEUTROPHIL # 11.6 TH/MM3 (1.8-7.7); BASOPHIL # 0.1 TH/MM3 (0-0.2); BASOPHIL % 0.8 % (0.0-2.0); EOSINOPHIL # 0.3 TH/MM3 (0-0.4); EOSINOPHIL % 1.9 % (0.0-4.0); HEMOGLOBIN 7.7 GM/DL (13.0-17.0); LYMPH % 9.6 % (9.0-44.0); LYMPHOCYTE # 1.5 TH/MM3 (1.0-4.8); MEAN CELL VOLUME 86.2 FL (80.0-100.0); MEAN CORPUSCULAR HGB CONC 33.6 % (32.0-36.0); MEAN PLATELET VOLUME 6.8 FL (7.0-11.0); MONOCYTE # 2.2 TH/MM3 (0-0.9); NEUT % 73.7 % (16.0-70.0); PLATELET COUNT 765 TH/MM3 (150-450); RED BLOOD COUNT 2.67 MIL/MM3 (4.50-5.90); RED CELL DISTRIBUTION WIDTH 15.9 % (11.6-17.2); WHITE BLOOD COUNT 15.7 TH/MM3 (4.0-11.0)
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
[2017-09-30] MEDS: INSULIN ASPART SUPPLEMENTAL SCALE SQ SCH ×4 (05:45→23:45)
[2017-09-30 05:54] LABS: BICARBONATE 24.8 MEQ/L (21.0-32.0); CALCIUM 7.8 MG/DL (8.5-10.1); CREATININE 0.81 MG/DL (0.60-1.30)
[2017-09-30] MEDS: POTASSIUM CHLORIDE 25 MEQ EFFERVESCENT TAB PO PRN (06:46)
[2017-09-30 06:53] LABS: BANDS 4 % (0-6); LYMPHOCYTES 18 % (9-44); MONOCYTES 13 % (0-8); NEUTROPHIL # MANUAL DIFF 10.7 TH/MM3 (1.8-7.7); PLASMA CELLS 1 % (0-0); POLYS (SEG NEUTROPHILS) 64 % (16-70)
[2017-09-30] MEDS: CHLORHEXIDINE 0.12% (ORAL KIT) 15 ML CUP MT SCH ×2 (08:00→20:00)
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
[2017-09-30] MEDS: VALPROIC ACID SYRUP 250 MG/5 ML UDC PO SCH ×2 (11:37→21:11)
[2017-09-30] MEDS: FAMOTIDINE 20 MG/2 ML VIAL IV PUSH SCH ×2 (11:37→21:11)
[2017-09-30] MEDS: FUROSEMIDE 40 MG/4 ML VIAL IV PUSH SCH (11:38)
[2017-09-30] MEDS: HEPARIN SODIUM - SQ 10,000 UNITS/ML VIAL SQ SCH ×2 (11:38→21:10)
[2017-09-30] MEDS: GABAPENTIN 100 MG CAP PO SCH ×3 (11:39→18:40)
[2017-09-30] MEDS: DOCUSATE SODIUM 50 MG/SENNA 8.6 MG TAB PO SCH ×2 (11:39→21:00)
[2017-09-30] MEDS: LISINOPRIL 5 MG TAB PO SCH (11:39)
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
[2017-09-30] MEDS ORDERED: MAGN30S PO (17:32)
[2017-09-30] MEDS ORDERED: PERI PO (17:32)
[2017-09-30] MEDS ORDERED: WALKER WHEELS/F1 MIS (17:34)
[2017-09-30] MEDS: QUEtiapine FUMARATE 100 MG TAB PO SCH (21:11)
[2017-10-01] VITALS (14 sets, daily range): BP systolic 125–177; BP diastolic 66–99; PULSE 106–121; RESP 16–35; TEMP 98.7–99.9; O2SAT 93–98
[2017-10-01] MEDS: METOPROLOL TARTRATE 5 MG/5 ML VIAL IV PUSH SCH ×5 (00:47→18:00)
[2017-10-01] MEDS: oxyCODONE HCL ORAL CONC 5 MG/0.25 ML SYRINGE PO SCH ×2 (00:47→06:00)
[2017-10-01] MEDS: hydrALAZINE HCL 20 MG/ML VIAL IV PUSH PRN (00:47)
[2017-10-01] MEDS: CHLORHEXIDINE GLUCONATE 2 % 1 PACK (2 CLOTHS) TOP SCH (04:00)
[2017-10-01 05:13] LABS: AUTOMATED NEUTROPHIL # 11.9 TH/MM3 (1.8-7.7); BASOPHIL # 0.1 TH/MM3 (0-0.2); BASOPHIL % 0.8 % (0.0-2.0); EOSINOPHIL # 0.2 TH/MM3 (0-0.4); HEMATOCRIT 24.8 % (39.0-51.0); HEMOGLOBIN 8.2 GM/DL (13.0-17.0); LYMPH % 10.9 % (9.0-44.0); LYMPHOCYTE # 1.8 TH/MM3 (1.0-4.8); MEAN CELL VOLUME 85.4 FL (80.0-100.0); MEAN CORPUSCULAR HEMOGLOBIN 28.2 PG (27.0-34.0); MEAN CORPUSCULAR HGB CONC 33.1 % (32.0-36.0); MEAN PLATELET VOLUME 6.5 FL (7.0-11.0); MONO % 14.4 % (0.0-8.0); MONOCYTE # 2.4 TH/MM3 (0-0.9); NEUT % 72.9 % (16.0-70.0); PLATELET COUNT 847 TH/MM3 (150-450); RED CELL DISTRIBUTION WIDTH 16.1 % (11.6-17.2); WHITE BLOOD COUNT 16.4 TH/MM3 (4.0-11.0)
[2017-10-01] MEDS: INSULIN ASPART SUPPLEMENTAL SCALE SQ SCH ×4 (05:45→23:45)
[2017-10-01 05:48] LABS: BICARBONATE 22.5 MEQ/L (21.0-32.0); CALCIUM 7.9 MG/DL (8.5-10.1); CREATININE 0.89 MG/DL (0.60-1.30)
[2017-10-01] MEDS: METHOCARBAMOL 500 MG TAB PO SCH ×3 (06:00→21:19)
[2017-10-01] MEDS: CHLORHEXIDINE 0.12% (ORAL KIT) 15 ML CUP MT SCH ×2 (08:00→20:00)
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
[2017-10-01] MEDS: FAMOTIDINE 20 MG/2 ML VIAL IV PUSH SCH ×2 (08:27→20:50)
[2017-10-01] MEDS: FUROSEMIDE 40 MG/4 ML VIAL IV PUSH SCH (08:27)
[2017-10-01] MEDS: MORPHINE SULFATE 4 MG/ML INJ IV PUSH PRN ×2 (08:28→21:27)
[2017-10-01] MEDS: HALOPERIDOL LACTATE 5 MG/ML AMP IV PUSH PRN (08:28)
[2017-10-01] MEDS: VALPROIC ACID SYRUP 250 MG/5 ML UDC PO SCH ×2 (08:29→20:59)
[2017-10-01] MEDS: GABAPENTIN 100 MG CAP PO SCH ×3 (08:29→18:00)
[2017-10-01] MEDS: HEPARIN SODIUM - SQ 10,000 UNITS/ML VIAL SQ SCH ×2 (08:29→20:51)
[2017-10-01] MEDS: LISINOPRIL 5 MG TAB PO SCH (08:29)
[2017-10-01] MEDS: DOCUSATE SODIUM 50 MG/SENNA 8.6 MG TAB PO SCH ×2 (08:29→20:59)
[2017-10-01] MEDS: QUEtiapine FUMARATE 100 MG TAB PO SCH ×2 (08:29→20:51)
[2017-10-01 08:34] LABS: LYMPHOCYTES 11 % (9-44); MONOCYTES 10 % (0-8); POLYS (SEG NEUTROPHILS) 79 % (16-70)
[2017-10-01] MEDS: REMOVE OLD LIDOCAINE PATCH T-DERMAL SCH ×2 (09:00→11:22)
[2017-10-01] MEDS ORDERED: oxyCODONE HCL ORAL CONC 5 MG/0.25 ML SYRINGE PO PRN (10:00)
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
[2017-10-01] MEDS: MELATONIN 5 MG TAB PO SCH (20:51)
[2017-10-02] VITALS (19 sets, daily range): BP systolic 118–145; BP diastolic 44–80; PULSE 97–130; RESP 22–32; TEMP 98.2–99.4; O2SAT 94–98
[2017-10-02] MEDS: METOPROLOL TARTRATE 5 MG/5 ML VIAL IV PUSH SCH ×2 (00:25→06:42)
[2017-10-02] MEDS: CHLORHEXIDINE GLUCONATE 2 % 1 PACK (2 CLOTHS) TOP SCH (04:00)
[2017-10-02 04:07] LABS: AUTOMATED NEUTROPHIL # 8.4 TH/MM3 (1.8-7.7); BASOPHIL # 0.1 TH/MM3 (0-0.2); BASOPHIL % 0.9 % (0.0-2.0); EOSINOPHIL # 0.3 TH/MM3 (0-0.4); EOSINOPHIL % 2.3 % (0.0-4.0); HEMATOCRIT 21.7 % (39.0-51.0); HEMOGLOBIN 7.3 GM/DL (13.0-17.0); LYMPHOCYTE # 1.8 TH/MM3 (1.0-4.8); MEAN CELL VOLUME 85.2 FL (80.0-100.0); MEAN CORPUSCULAR HEMOGLOBIN 28.6 PG (27.0-34.0); MEAN CORPUSCULAR HGB CONC 33.6 % (32.0-36.0); MEAN PLATELET VOLUME 6.5 FL (7.0-11.0); MONO % 15.8 % (0.0-8.0); PLATELET COUNT 758 TH/MM3 (150-450); RED BLOOD COUNT 2.55 MIL/MM3 (4.50-5.90); RED CELL DISTRIBUTION WIDTH 15.9 % (11.6-17.2); WHITE BLOOD COUNT 12.6 TH/MM3 (4.0-11.0)
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
[2017-10-02 04:28] LABS: BICARBONATE 25.8 MEQ/L (21.0-32.0); CREATININE 0.83 MG/DL (0.60-1.30)
[2017-10-02] MEDS: INSULIN ASPART SUPPLEMENTAL SCALE SQ SCH ×2 (05:45→11:45)
[2017-10-02] MEDS: METHOCARBAMOL 500 MG TAB PO SCH ×3 (06:42→21:27)
[2017-10-02] MEDS: CHLORHEXIDINE 0.12% (ORAL KIT) 15 ML CUP MT SCH (07:56)
[2017-10-02] MEDS: REMOVE OLD LIDOCAINE PATCH T-DERMAL SCH (09:00)
[2017-10-02] MEDS: DOCUSATE SODIUM 50 MG/SENNA 8.6 MG TAB PO SCH ×2 (09:00→20:56)
[2017-10-02] MEDS: FUROSEMIDE 40 MG/4 ML VIAL IV PUSH SCH (09:05)
[2017-10-02] MEDS: QUEtiapine FUMARATE 100 MG TAB PO SCH ×2 (09:06→20:55)
[2017-10-02] MEDS: LISINOPRIL 5 MG TAB PO SCH (09:06)
[2017-10-02] MEDS: HEPARIN SODIUM - SQ 10,000 UNITS/ML VIAL SQ SCH ×2 (09:06→20:55)
[2017-10-02] MEDS: FAMOTIDINE 20 MG/2 ML VIAL IV PUSH SCH ×2 (09:06→20:54)
[2017-10-02] MEDS: VALPROIC ACID SYRUP 250 MG/5 ML UDC PO SCH ×2 (09:06→20:55)
[2017-10-02] MEDS: GABAPENTIN 100 MG CAP PO SCH ×3 (09:06→17:20)
[2017-10-02] MEDS: POTASSIUM CHLORIDE 25 MEQ EFFERVESCENT TAB PO PRN (09:07)
[2017-10-02] MEDS ORDERED: SODIUM CHLOR 0.9% 250 ML INJ 250 ML IV ONE (09:45)
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
[2017-10-02] MEDS: METOPROLOL TARTRATE 25 MG TAB PO SCH ×2 (10:54→20:56)
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
[2017-10-02] MEDS: HALOPERIDOL LACTATE 5 MG/ML AMP IV PUSH PRN (14:00)
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
[2017-10-02] MEDS ORDERED: QUEtiapine FUMARATE 100 MG TAB PO ONE (15:45)
[2017-10-02] MEDS: MELATONIN 5 MG TAB PO SCH (20:56)
[2017-10-03] VITALS (8 sets, daily range): BP systolic 111–191; BP diastolic 78–97; PULSE 101–117; RESP 17–35; TEMP 97.8–100; O2SAT 92–98
[2017-10-03] MEDS: HALOPERIDOL LACTATE 5 MG/ML AMP IV PUSH PRN ×2 (03:26→13:11)
[2017-10-03] MEDS: CHLORHEXIDINE GLUCONATE 2 % 1 PACK (2 CLOTHS) TOP SCH (04:00)
[2017-10-03 04:09] LABS: HEMATOCRIT 29.3 % (39.0-51.0); HEMOGLOBIN 9.8 GM/DL (13.0-17.0)
[2017-10-03] MEDS: METHOCARBAMOL 500 MG TAB PO SCH ×3 (06:21→21:50)
[2017-10-03] MEDS: QUEtiapine FUMARATE 100 MG TAB PO SCH ×3 (06:21→19:24)
[2017-10-03] MEDS: GABAPENTIN 100 MG CAP PO SCH ×3 (08:11→17:33)
[2017-10-03] MEDS: DOCUSATE SODIUM 50 MG/SENNA 8.6 MG TAB PO SCH ×2 (08:11→19:23)
[2017-10-03] MEDS: METOPROLOL TARTRATE 25 MG TAB PO SCH (08:11)
[2017-10-03] MEDS: LISINOPRIL 5 MG TAB PO SCH (08:11)
[2017-10-03] MEDS: REMOVE OLD LIDOCAINE PATCH T-DERMAL SCH (09:00)
[2017-10-03] MEDS: VALPROIC ACID 250 MG CAP PO SCH ×2 (09:56→19:23)
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
[2017-10-03] MEDS: HEPARIN SODIUM - SQ 10,000 UNITS/ML VIAL SQ SCH ×2 (13:09→21:50)
[2017-10-03] MEDS ORDERED: ENALAPRILAT 1.25 MG/ML VIAL IV PUSH PRN (17:45)
[2017-10-03] MEDS: MORPHINE SULFATE 4 MG/ML INJ IV PUSH PRN (19:23)
[2017-10-03] MEDS: METOPROLOL TARTRATE 50 MG TAB PO SCH (19:23)
[2017-10-03] MEDS: MELATONIN 5 MG TAB PO SCH (19:24)
[2017-10-04] VITALS (7 sets, daily range): BP systolic 114–154; BP diastolic 66–82; PULSE 100–115; RESP 18–26; TEMP 95.8–100.2; O2SAT 93–97
[2017-10-04] MEDS: CHLORHEXIDINE GLUCONATE 2 % 1 PACK (2 CLOTHS) TOP SCH ×2 (00:32→19:48)
--- NOTE | 2017-10-04 01:00 | RADRPT ---
EXAM DATE/TIME: 10/04/2017 00:28 [facility] COMPARISON: No previous studies available for comparison. INDICATIONS : Shortness of breath. MEDICAL HISTORY : Multiple right rib fractures SURGICAL HISTORY : None. ENCOUNTER: Initial ACUITY: 1 day PAIN SCORE: Non-responsive. LOCATION: Bilateral chest FINDINGS: Multiple comminuted and segmental right rib fractures are again noted. There's persistent patchy pare nchymal consolidation of the right lung and a small moderate pleural effusion again noted, not signif icantly changed. Mild left base consolidation, not significantly changed. No perceptible pneumothorax. CONCLUSION: No significant change demonstrated. Vick Acevedo MD on October 04, 2017 at 0:57 Board Certified Radiologist. This report was verified electronically.
[2017-10-04] MEDS: HEPARIN SODIUM - SQ 10,000 UNITS/ML VIAL SQ SCH ×3 (06:05→19:47)
[2017-10-04] MEDS: METHOCARBAMOL 500 MG TAB PO SCH ×3 (06:05→19:46)
[2017-10-04] MEDS: QUEtiapine FUMARATE 100 MG TAB PO SCH ×3 (06:06→19:47)
[2017-10-04] MEDS ORDERED: HALO5P IV PUSH (06:31)
[2017-10-04] MEDS ORDERED: OXYC-395 PO (06:31)
[2017-10-04] MEDS ORDERED: OXYC-392 PO (06:31)
[2017-10-04] MEDS ORDERED: Heparin Inj SQ (06:31)
[2017-10-04] MEDS ORDERED: METH500T3 PO (06:31)
[2017-10-04] MEDS ORDERED: GABA100C4 PO (06:31)
[2017-10-04] MEDS ORDERED: METO-309 PO (06:31)
[2017-10-04] MEDS ORDERED: VALP250 PO (06:31)
[2017-10-04] MEDS ORDERED: MELA5 PO (06:31)
[2017-10-04] MEDS ORDERED: LISI-519 PO (06:31)
[2017-10-04] MEDS ORDERED: QUET1TAB8 PO ×2 (06:31)
[2017-10-04 07:36] LABS: HEMATOCRIT 28.4 % (39.0-51.0); HEMOGLOBIN 9.4 GM/DL (13.0-17.0); MEAN CELL VOLUME 86.8 FL (80.0-100.0); MEAN CORPUSCULAR HEMOGLOBIN 28.9 PG (27.0-34.0); MEAN CORPUSCULAR HGB CONC 33.3 % (32.0-36.0); MEAN PLATELET VOLUME 6.6 FL (7.0-11.0); PLATELET COUNT 813 TH/MM3 (150-450); RED BLOOD COUNT 3.27 MIL/MM3 (4.50-5.90); RED CELL DISTRIBUTION WIDTH 15.8 % (11.6-17.2); WHITE BLOOD COUNT 12.6 TH/MM3 (4.0-11.0)
[2017-10-04 08:04] LABS: BICARBONATE 23.9 MEQ/L (21.0-32.0); CALCIUM 8.4 MG/DL (8.5-10.1); CREATININE 0.78 MG/DL (0.60-1.30)
[2017-10-04] MEDS: DOCUSATE SODIUM 50 MG/SENNA 8.6 MG TAB PO SCH ×2 (08:25→19:47)
[2017-10-04] MEDS: METOPROLOL TARTRATE 50 MG TAB PO SCH ×2 (08:26→19:47)
[2017-10-04] MEDS: GABAPENTIN 100 MG CAP PO SCH ×3 (08:26→17:01)
[2017-10-04] MEDS: LISINOPRIL 5 MG TAB PO SCH ×2 (08:26→19:47)
[2017-10-04] MEDS: VALPROIC ACID 250 MG CAP PO SCH ×2 (08:26→19:46)
[2017-10-04] MEDS: REMOVE OLD LIDOCAINE PATCH T-DERMAL SCH (09:00)
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
[2017-10-04] MEDS: MELATONIN 5 MG TAB PO SCH (19:47)
[2017-10-05] VITALS: BP 148/74; PULSE 102; RESP 24; TEMP 98.3; O2SAT 96
[2017-10-05 04:00] VITALS: BP 167/79; PULSE 99; RESP 24; TEMP 99.2; O2SAT 96
[2017-10-05] MEDS: HEPARIN SODIUM - SQ 10,000 UNITS/ML VIAL SQ SCH (05:53)
[2017-10-05] MEDS: METHOCARBAMOL 500 MG TAB PO SCH (05:53)
[2017-10-05] MEDS: QUEtiapine FUMARATE 100 MG TAB PO SCH (05:57)
[2017-10-05 07:37] VITALS: O2SAT 96
[2017-10-05] MEDS: VALPROIC ACID 250 MG CAP PO SCH (07:45)
[2017-10-05] MEDS: DOCUSATE SODIUM 50 MG/SENNA 8.6 MG TAB PO SCH (07:45)
[2017-10-05] MEDS: METOPROLOL TARTRATE 50 MG TAB PO SCH (07:45)
[2017-10-05] MEDS: GABAPENTIN 100 MG CAP PO SCH (07:46)
[2017-10-05] MEDS: LISINOPRIL 5 MG TAB PO SCH (07:46)
[2017-10-05] MEDS: REMOVE OLD LIDOCAINE PATCH T-DERMAL SCH (07:46)
[2017-10-05 08:00] VITALS: BP 182/92; PULSE 108; RESP 18; TEMP 99.3; O2SAT 96
[2017-10-05 08:35] VITALS: BP 157/87
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
== END 2017-10-05 10:26 | DRG 957 ==
LOC: NEPC 15:46 → NEDA 16:26 → N03B 17:27 → N06A 10-03 15:05
PROVIDERS: ADMIT Surgery Trauma Surgery; ATTEND Surgery Trauma Surgery
PROC: 3E0F7GC Introduction of Other Therapeutic Substance into Respiratory Tract, Via Natural or Artificial Opening (ICD-10-PCS; 2017-09-14)
PROC: 0PB20ZZ Excision of 3 or More Ribs, Open Approach (ICD-10-PCS; 2017-09-15)
PROC: 5A1955Z Respiratory Ventilation, Greater than 96 Consecutive Hours (ICD-10-PCS; 2017-09-15)
PROC: 0BQ Respiratory System, Repair (ICD-10-PCS; 2017-09-15)
PROC: 0BQF0ZZ Repair Right Lower Lung Lobe, Open Approach (ICD-10-PCS; 2017-09-15)
PROC: 0W9930Z Drainage of Right Pleural Cavity with Drainage Device, Percutaneous Approach (ICD-10-PCS; 2017-09-15)
PROC: 0W9930Z Drainage of Right Pleural Cavity with Drainage Device, Percutaneous Approach (ICD-10-PCS; 2017-09-15)
PROC: 0W9930Z Drainage of Right Pleural Cavity with Drainage Device, Percutaneous Approach (ICD-10-PCS; 2017-09-15)
PROC: 6A550Z2 Pheresis of Platelets, Single (ICD-10-PCS; 2017-09-15)
PROC: 0T9B70Z Drainage of Bladder with Drainage Device, Via Natural or Artificial Opening (ICD-10-PCS; 2017-09-15)
PROC: 30233K1 Transfusion of Nonautologous Frozen Plasma into Peripheral Vein, Percutaneous Approach (ICD-10-PCS; 2017-09-15)
PROC: 0BH17EZ Insertion of Endotracheal Airway into Trachea, Via Natural or Artificial Opening (ICD-10-PCS; 2017-09-15)
PROC: 05H533Z Insertion of Infusion Device into Right Subclavian Vein, Percutaneous Approach (ICD-10-PCS; 2017-09-15)
PROC: 0BBC0ZZ Excision of Right Upper Lung Lobe, Open Approach (ICD-10-PCS; principal; 2017-09-15 13:11)
PROC: 00HU33Z Insertion of Infusion Device into Spinal Canal, Percutaneous Approach (ICD-10-PCS; 2017-09-21)
PROC: 3E0R3BZ Introduction of Anesthetic Agent into Spinal Canal, Percutaneous Approach (ICD-10-PCS; 2017-09-21)
PROC: 5A1955Z Respiratory Ventilation, Greater than 96 Consecutive Hours (ICD-10-PCS; 2017-09-24)
PROC: 0BH17EZ Insertion of Endotracheal Airway into Trachea, Via Natural or Artificial Opening (ICD-10-PCS; 2017-09-24)
PROC: 30233N1 Transfusion of Nonautologous Red Blood Cells into Peripheral Vein, Percutaneous Approach (ICD-10-PCS; 2017-10-02)
PROC: 0T9B70Z Drainage of Bladder with Drainage Device, Via Natural or Artificial Opening (ICD-10-PCS; 2017-10-04)
DX: S27.331A Laceration of lung, unilateral, initial encounter (principal); R57.1 Hypovolemic shock; S06.9X9A Unspecified intracranial injury with loss of consciousness of unspecified duration, initial encounter; S22.5XXA Flail chest, initial encounter for closed fracture; J96.01 Acute respiratory failure with hypoxia; J90 Pleural effusion, not elsewhere classified; G93.40 Encephalopathy, unspecified; J98.11 Atelectasis; F19.939 Other psychoactive substance use, unspecified with withdrawal, unspecified; E87.0 Hyperosmolality and hypernatremia; S27.2XXA Traumatic hemopneumothorax, initial encounter; S00.91XA Abrasion of unspecified part of head, initial encounter; V49.49XA Driver injured in collision with other motor vehicles in traffic accident, initial encounter; Y92.410 Unspecified street and highway as the place of occurrence of the external cause; Y93.89 Activity, other specified; S27.321A Contusion of lung, unilateral, initial encounter; S27.1XXA Traumatic hemothorax, initial encounter; G89.12 Acute post-thoracotomy pain; E87.6 Hypokalemia; E87.70 Fluid overload, unspecified; F10.10 Alcohol abuse, uncomplicated; G47.00 Insomnia, unspecified; I10 Essential (primary) hypertension; E88.09 Other disorders of plasma-protein metabolism, not elsewhere classified; D64.9 Anemia, unspecified
CPT/HCPCS: 31500; 36430; 36556; 36600; 36620; 71045; 73030; 73060; 73564; 74018; 76937; 80048; 80053; 80202; 82140; 82550; 82552; 82805; 82948; 83735; 84100; 84132; 84155; 84484; 85007; 85014; 85018; 85025; 85027; 85610; 85730; 86077; 86850; 86870; 86880; 86900; 86901; 86920; 86922; 86927; 86965; 87070; 87205; 87641; 88305; 88307; 93005; 94002; 94003; 94150; 94640; 94664; 94667; 94668; J0131; J0171; J0360; J0690; J1120; J1170; J1630; J1644; J1650; J1940; J2060; J2250; J2270; J2405; J2543; J3010; J3370; J3480; J7030; J7040; J7050; J7120; P9016; P9017; P9035